=== PATIENT | male | born 1975 | race Caucasian/White ===

== ENCOUNTER 2017-05-28 10:52 | Emergency (ER) | payer BC, OTHER ==
[2017-05-28] MEDS ORDERED: Sodium Chloride 0.9% 10 ML Syringe FLUSH PRN ×2 (11:26→12:52)
[2017-05-28] MEDS ORDERED: Albuterol/Ipratropium 3.0-0.5 MG/3 ML Neb Soln NEB ONE (11:30)
--- NOTE | 2017-05-28 12:23 | EDM.PDOC ---
ED HPI GENERAL MEDICAL PROBLEM - General Chief Complaint: Cardiovascular Problem Stated Complaint: BODY SWELLING AND SOB Time Seen by Provider: 05/28/17 11:08 Source of Information: Reports: Patient, Family History Limitations: Reports: No Limitations - History of Present Illness INITIAL COMMENTS - FREE TEXT/NARRATIVE: The patient presents with shortness of breath and distended abdomen. This all started about 1 week ago with a cough that was productive of clear secretions. He had no fever but he does have chills. He now has a distended abdomen. He is still having bowel movements but they are less. He would normally go every day but now it is every other day and not as much. He has no abdominal pain. He just feels bloated. He has some nausea at times but no vomiting. He has no dysuria. He has no chest pain but he is short of breath. He cannot walk but a few steps and gets winded. He also is short of breath sleeping. He says he can tolerate it by laying on his left side. He has no cardiac history. He quit smoking a couple years ago. He has no asthma or emphysema. He has high blood pressure. He has swelling in both legs. Onset: Gradual Duration: Week(s): (1) Location: Reports: Abdomen Quality: Reports: Other (Bloated) Severity: Moderate Improves with: Reports: None Worsens with: Reports: None Associated Symptoms: Reports: Cough, cough w sputum, Fever/Chills, Nausea/ Vomiting, Shortness of Breath. Denies: Chest Pain, Headaches Abdomen Pain Score (Numeric/FACES): 9 - Related Data Allergies Allergy/AdvReac Type Severity Reaction Status Date / Time meperidine [From Demerol] Allergy Anaphylactic Verified 05/28/17 11:14 Shock morphine Allergy Anaphylactic Verified 05/28/17 11:14 Shock Home Meds: Home Meds Hydrochlorothiazide 25 mg PO DAILY 05/28/17 [History] Lisinopril 30 mg PO DAILY 05/28/17 [History] Past Medical History Cardiovascular History: Reports: Hypertension Psychiatric History: Reports: Anxiety Social & Family History - Tobacco Use Smoking Status *Q: Former Smoker Used Tobacco, but Quit: Yes Month Tobacco Last Used: 1 week - Caffeine Use Caffeine Use: Reports: Soda, Tea - Recreational Drug Use Recreational Drug Use: No ED ROS GENERAL - Review of Systems Review Of Systems: See Below Constitutional: Reports: Chills, Malaise, Weakness, Fatigue. Denies: Fever HEENT: Reports: No Symptoms Respiratory: Reports: Shortness of Breath, Wheezing, Cough Cardiovascular: Reports: Edema. Denies: Chest Pain Endocrine: Reports: No Symptoms GI/Abdominal: Reports: No Symptoms, Nausea, Other (Abdominal distension). Denies: Abdominal Pain, Diarrhea, Vomiting : Reports: No Symptoms Musculoskeletal: Reports: No Symptoms ED EXAM, GENERAL - Physical Exam Exam: See Below Exam Limited By: No Limitations General Appearance: Alert, No Apparent Distress Ears: Normal External Exam Nose: Normal Inspection Head: Atraumatic, Normocephalic Neck: Normal Inspection Respiratory/Chest: No Respiratory Distress, Decreased Breath Sounds, Wheezing Cardiovascular: No Murmur, Tachycardia, Other (Bilateral leg edema) GI/Abdominal: Soft, Non-Tender, No Organomegaly, No Mass Back Exam: Normal Inspection Extremities: Other (bilateral leg edema) Neurological: Alert, Oriented, No Motor/Sensory Deficits EKG INTERPRETATION EKG Date: 05/28/17 Time: 12:30 Rhythm: Other (sinus tachycardia) Rate (Beats/Min): 122 [place]: Normal P-Wave: Present QRS: Normal ST-T: Normal QT: Prolonged EKG Interpretation Comments: Q waves in the anterior leads Course - Vital Signs Last Recorded V/S: Last Vital Signs Temp 956 F H 05/28/17 11:06 Pulse 124 H 05/28/17 11:06 Resp 32 H 05/28/17 11:06 BP 139/101 H 05/28/17 11:06 Pulse Ox 97 05/28/17 11:47 - Orders/Labs/Meds Orders: Active Orders 24 hr Category Date Time Status Cardiac Monitoring [RC] . DIRECTED Care 05/28/17 11:26 Active EKG Documentation Completion [RC] STAT Care 05/28/17 11:27 Active Oxygen Therapy [RC] PRN Care 05/28/17 11:26 Active Peripheral IV Care [RC] . DIRECTED Care 05/28/17 11:27 Active RT Aerosol Therapy [RC] ASDIRECTED Care 05/28/17 11:30 Active Chest 1V Frontal [CR] Stat Exams 05/28/17 11:28 Taken Sodium Chloride 0.9% [Normal Saline] 100 ml Med 05/28/17 13:00 Active IV ASDIRECTED Sodium Chloride 0.9% [Saline Flush] Med 05/28/17 11:26 Active 10 ml FLUSH ASDIRECTED PRN Sodium Chloride 0.9% [Saline Flush] Med 05/28/17 12:52 Active 10 ml FLUSH ONETIME PRN Peripheral IV Insertion Adult [OM.PC] Stat Oth 05/28/17 11:26 Ordered Medication Orders Sodium Chloride (Normal Saline) 100 mls @ 65 mls/hr IV ASDIRECTED JASKARAN Last Admin: 05/28/17 13:27 Dose: 65 mls/hr Sodium Chloride (Saline Flush) 10 ml FLUSH ASDIRECTED PRN PRN Reason: Keep Vein Open Last Admin: 05/28/17 11:44 Dose: 10 ml Sodium Chloride (Saline Flush) 10 ml FLUSH ONETIME PRN PRN Reason: IV FLUSH Last Admin: 05/28/17 13:27 Dose: 10 ml Labs: Laboratory Tests 05/28/17 05/28/17 05/28/17 Range/Units 11:40 11:40 11:40 WBC 8.70 (4.23-9.07) K/mm3 RBC 4.68 (4.63-6.08) M/mm3 Hgb 15.2 (13.7-17.5) gm/L Hct 42.9 (40.1-51.0) % MCV 91.7 (79.0-92.2) fl MCH 32.5 H (25.7-32.2) pg MCHC 35.4 (32.2-35.5) g/dl RDW Std Deviation 38.5 (35.1-43.9) fL Plt Count 136 L (163-337) K/mm3 MPV 11.5 (9.4-12.3) fl Neut % (Auto) 67.4 (34.0-67.9) % Lymph % (Auto) 18.4 L (21.8-53.1) % [place] % (Auto) 13.3 H (5.3-12.2) % Eos % (Auto) 0.7 L (0.8-7.0) Baso % (Auto) 0.1 (0.1-1.2) % Neut # (Auto) 5.86 H (1.78-5.38) K/mm3 Lymph # (Auto) 1.60 (1.32-3.57) K/mm3 [place] # (Auto) 1.16 H (0.30-0.82) K/mm3 Eos # (Auto) 0.06 (0.04-0.54) K/mm3 Baso # (Auto) 0.01 (0.01-0.08) K/mm3 PT 15.7 H (8.0-13.0) SECONDS INR 1.41 APTT 29 (22-36) SECONDS Sodium 120 L (136-145) mEq/L Potassium 4.3 (3.5-5.1) mEq/L Chloride 86 L (98-107) mEq/L Carbon Dioxide 21 (21-32) mEq/L Anion Gap 17.3 H (5-15) BUN 8 (7-18) mg/dL Creatinine 0.8 (0.7-1.3) mg/dL Est Cr Clr Drug Dosing 128.11 mL/min Estimated GFR (MDRD) > 60 (>60) mL/min BUN/Creatinine Ratio 10.0 L (14-18) Glucose 113 H (74-106) mg/dL Calcium 8.5 (8.5-10.1) mg/dL Total Bilirubin 1.7 H (0.2-1.0) mg/dL AST 74 H (15-37) U/L ALT 52 (16-63) U/L Alkaline Phosphatase 63 (46-116) U/L Troponin I 0.113 H* (0.00-0.056) ng/mL C-Reactive Protein 5.9 H* (<1.0) mg/dL NT-Pro-B Natriuret Pep (0-125) pg/mL Total Protein 7.1 (6.4-8.2) g/dl Albumin 3.0 L (3.4-5.0) g/dl Globulin 4.1 gm/dL Albumin/Globulin Ratio 0.7 L (1-2) Lipase 518 H (73-393) U/L Urine Color (Yellow) Urine Appearance (Clear) Urine pH (5.0-8.0) Ur Specific [place] (1.005-1.030) Urine Protein (Negative) Urine Glucose (UA) (Negative) Urine Ketones (Negative) Urine Occult Blood (Negative) Urine Nitrite (Negative) Urine Bilirubin (Negative) Urine Urobilinogen (0.2-1.0) Ur Leukocyte Esterase (Negative) Urine RBC (0-5) /hpf Urine WBC (0-5) /hpf Ur Epithelial Cells (0-5) /hpf Urine Bacteria (FEW) /hpf Hyaline Casts (0-5) /lpf Urine Mucus (FEW) /hpf 05/28/17 05/28/17 Range/Units 11:40 12:55 WBC (4.23-9.07) K/mm3 RBC (4.63-6.08) M/mm3 Hgb (13.7-17.5) gm/L Hct (40.1-51.0) % MCV (79.0-92.2) fl MCH (25.7-32.2) pg MCHC (32.2-35.5) g/dl RDW Std Deviation (35.1-43.9) fL Plt Count (163-337) K/mm3 MPV (9.4-12.3) fl Neut % (Auto) (34.0-67.9) % Lymph % (Auto) (21.8-53.1) % [place] % (Auto) (5.3-12.2) % Eos % (Auto) (0.8-7.0) Baso % (Auto) (0.1-1.2) % Neut # (Auto) (1.78-5.38) K/mm3 Lymph # (Auto) (1.32-3.57) K/mm3 [place] # (Auto) (0.30-0.82) K/mm3 Eos # (Auto) (0.04-0.54) K/mm3 Baso # (Auto) (0.01-0.08) K/mm3 PT (8.0-13.0) SECONDS INR APTT (22-36) SECONDS Sodium (136-145) mEq/L Potassium (3.5-5.1) mEq/L Chloride (98-107) mEq/L Carbon Dioxide (21-32) mEq/L Anion Gap (5-15) BUN (7-18) mg/dL Creatinine (0.7-1.3) mg/dL Est Cr Clr Drug Dosing mL/min Estimated GFR (MDRD) (>60) mL/min BUN/Creatinine Ratio (14-18) Glucose (74-106) mg/dL Calcium (8.5-10.1) mg/dL Total Bilirubin (0.2-1.0) mg/dL AST (15-37) U/L ALT (16-63) U/L Alkaline Phosphatase (46-116) U/L Troponin I (0.00-0.056) ng/mL C-Reactive Protein (<1.0) mg/dL NT-Pro-B Natriuret Pep 2868 H (0-125) pg/mL Total Protein (6.4-8.2) g/dl Albumin (3.4-5.0) g/dl Globulin gm/dL Albumin/Globulin Ratio (1-2) Lipase (73-393) U/L Urine Color [place] H (Yellow) Urine Appearance Clear (Clear) Urine pH 6.0 (5.0-8.0) Ur Specific [place] 1.025 (1.005-1.030) Urine Protein 1+ H (Negative) Urine Glucose (UA) Negative (Negative) Urine Ketones Negative (Negative) Urine Occult Blood Negative (Negative) Urine Nitrite Negative (Negative) Urine Bilirubin 1+ H (Negative) Urine Urobilinogen 2.0 H (0.2-1.0) Ur Leukocyte Esterase Negative (Negative) Urine RBC Not seen (0-5) /hpf Urine WBC 0-5 (0-5) /hpf Ur Epithelial Cells 0-5 (0-5) /hpf Urine Bacteria Few (FEW) /hpf Hyaline Casts 0-5 (0-5) /lpf Urine Mucus Moderate H (FEW) /hpf Meds: Medications Generic Name Dose Route Start Last Admin Trade Name Freq PRN Reason Stop Dose Admin Sodium Chloride 100 mls @ 65 mls/hr 05/28/17 13:00 05/28/17 13:27 Normal Saline IV 65 mls/hr ASDIRECTED JASKARAN Administration Sodium Chloride 10 ml 05/28/17 11:26 05/28/17 11:44 Saline Flush FLUSH 10 ml ASDIRECTED PRN Administration Keep Vein Open Sodium Chloride 10 ml 05/28/17 12:52 05/28/17 13:27 Saline Flush FLUSH 10 ml ONETIME PRN Administration IV FLUSH Discontinued Medications Generic Name Dose Route Start Last Admin Trade Name Freq PRN Reason Stop Dose Admin Albuterol/Ipratropium 3 ml 05/28/17 11:30 05/28/17 11:47 Duoneb 3.0-0.5 Mg/3 Ml NEB 05/28/17 11:31 3 ml ONETIME ONE Administration Aspirin 324 mg 05/28/17 12:58 05/28/17 14:07 Aspirin PO 05/28/17 12:59 324 mg ONETIME ONE Administration Diatrizoate Meglum/Diatrizoate Sod 90 ml 05/28/17 12:52 Gastrografin 37% PO 05/28/17 12:53 ONETIME ONE Furosemide 40 mg 05/28/17 13:35 05/28/17 14:07 Lasix IVPUSH 05/28/17 13:36 40 mg NOW ONE Administration Iopamidol 100 ml 05/28/17 12:52 05/28/17 13:27 Isovue-370 (76%) IVPUSH 05/28/17 12:53 100 ml ONETIME ONE Administration Iopamidol 50 ml 05/28/17 12:52 05/28/17 13:27 Isovue-370 (76%) IVPUSH 05/28/17 12:53 50 ml ONETIME ONE Administration - Re-Assessments/Exams Free Text/Narrative Re-Assessment/Exam: 05/28/17 12:28 I ordered an IV saline lock, EKG, CXR, labs, UA, CT of his chest, abdomen and pelvis and an. 05/28/17 14:29 His EKG shows a sinus tachycardia with some Q waves in the anterior leads. His CXR shows cardiomegaly. His CBC is negative. His Na is low at 120. His total bili is elevated at 1.7. His AST is elevated at 74. His troponin is elevated at 0.113. I gave him some aspirin. His CRP was elevated at 5.9. His BNP was elevated at 2868. His lipase was elevated at 518. His UA shows no UTI. His albumin was a little low at 3. The CT of his abdomen and pelvis shows mild amount of ascities. Diffuse body wall edema. No additional abnormality is appreciated on CT study of the abdomen and pelvis. The CT angio of his chest shows cardiomegaly with small to moderate size right-sided pleural effusion and very minimal left-sided pleural effusion. Mild diffuse body wall edema is noted. No findings of pulmonary embolism. I ordered lasix 40mg IV. It appears he had a nonSTEMI and no he is having CHF. I feel he needs to go down to [place]. I called [facility] and talked with Dr Maloney and he accepted the patient. Departure - Departure Time of Disposition: 14:40 Disposition: DC/Tfer to [facility] Reason for Transfer *Q: Other Condition: Serious Clinical Impression: Non-STEMI (non-ST elevated myocardial infarction), Hyponatremia Pancreatitis Qualifiers: Chronicity: acute Pancreatitis type: other Acute pancreatitis complication: no infection or necrosis Qualified Code(s): K85.80 - Other acute pancreatitis without necrosis or infection CHF (congestive heart failure) Qualifiers: Heart failure type: unspecified Heart failure chronicity: acute Qualified Code( s): I50.9 - Heart failure, unspecified Forms: ED Department Discharge - My Orders Last 24 Hours: My Active Orders 05/28/17 11:26 Cardiac Monitoring [RC] . DIRECTED Oxygen Therapy [RC] PRN Sodium Chloride 0.9% [Saline Flush] 10 ml FLUSH ASDIRECTED PRN Peripheral IV Insertion Adult [OM.PC] Stat 05/28/17 11:27 EKG Documentation Completion [RC] STAT Peripheral IV Care [RC] . DIRECTED 05/28/17 11:28 Chest 1V Frontal [CR] Stat 05/28/17 11:30 RT Aerosol Therapy [RC] ASDIRECTED 05/28/17 12:52 Sodium Chloride 0.9% [Saline Flush] 10 ml FLUSH ONETIME PRN 05/28/17 13:00 Sodium Chloride 0.9% [Normal Saline] 100 ml IV ASDIRECTED - Assessment/Plan Last 24 Hours: My Active Orders 05/28/17 11:26 Cardiac Monitoring [RC] . DIRECTED Oxygen Therapy [RC] PRN Sodium Chloride 0.9% [Saline Flush] 10 ml FLUSH ASDIRECTED PRN Peripheral IV Insertion Adult [OM.PC] Stat 05/28/17 11:27 EKG Documentation Completion [RC] STAT Peripheral IV Care [RC] . DIRECTED 05/28/17 11:28 Chest 1V Frontal [CR] Stat 05/28/17 11:30 RT Aerosol Therapy [RC] ASDIRECTED 05/28/17 12:52 Sodium Chloride 0.9% [Saline Flush] 10 ml FLUSH ONETIME PRN 02/18/18 13:00 Sodium Chloride 0.9% [Normal Saline] 100 ml IV ASDIRECTED
[2017-05-28] MEDS ORDERED: Iopamidol 755 Mg/ML 100 ML Bottle IVPUSH ONE (12:52)
[2017-05-28] MEDS ORDERED: Diatrizoate Meglumine/Diatrizoate Sodium 37% 120 ML Bottle PO ONE (12:52)
[2017-05-28] MEDS ORDERED: Iopamidol 755 MG/ML 50 ML Bottle IVPUSH ONE (12:52)
[2017-05-28] MEDS ORDERED: Aspirin 81 MG Tab.Chew PO ONE (12:58)
[2017-05-28] MEDS ORDERED: Sodium Chloride 0.9% 100 ML IV SCH (13:00)
[2017-05-28] MEDS ORDERED: Furosemide 40 MG/4 ML VIAL IVPUSH ONE (13:35)
--- NOTE | 2017-05-28 14:22 | CT ---
CT abdomen and pelvis Technique: Volumetric acquisition was obtained from above the dome of the diaphragm inferiorly through the pubic symphysis. Intravenous and oral contrast was utilized. Delayed images were also obtained through the abdomen and pelvis. Findings: Mild amount of ascites is seen within the abdomen and pelvis. Liver shows no discrete abnormality. Spleen appears within normal limits. Adrenal glands show no nodule. Pancreas is within normal limits. Kidneys show symmetric contrast enhancement without hydronephrosis or mass. Adrenal glands show no nodule. Pancreas is normal. Aorta shows no aneurysm. No retroperitoneal adenopathy or mesenteric abnormalities are seen. No pelvic mass or adenopathy is seen. Appendix is seen which appears to be normal. No bowel dilatation is seen. Body wall edema is noted. Delayed images shows contrast within nondilated ureters and bladder. Bone window settings were reviewed which appear within normal limits for the patient's age. Impression: 1. Mild amount of ascites. Diffuse body wall edema. 2. No additional abnormality is appreciated on CT study of the abdomen and pelvis. Diagnostic code #3
--- NOTE | 2017-05-28 14:22 | CT ---
CT chest Technique: Multiple axial sections were obtained through the chest. Intravenous contrast was utilized. Findings: Small to moderate-sized right sided pleural effusion is seen as well as trace left-sided pleural effusion. Slight compressive atelectasis seen within the right lung base. Minimal linear densities within the left base are seen likely representing slight atelectasis. Lungs otherwise are clear. Heart appears enlarged. Pulmonary arteries are well-opacified. No filling defects are seen to indicate pulmonary embolism. Mild diffuse body wall edema is seen. Mediastinum and hilar regions shows several small lymph nodes which are felt to be incidental. Slight degenerative spurring is noted within the spine. Impression: 1. Cardiomegaly with small to moderate size right-sided pleural effusion and very minimal left-sided pleural effusion. Mild diffuse body wall edema is noted. 2. No findings of pulmonary embolism. Diagnostic code #5
[2017-05-28] MEDS ORDERED: Nitroglycerin/D5W 25 MG/250 ML BOTTLE IV SCH (15:00)
--- NOTE | 2017-05-29 07:06 | CR ---
Chest: Portable view of the chest was obtained. Comparison: No previous chest x-ray. Heart is enlarged. Slight upper lobe pulmonary vascular redistribution is seen. Minimal areas of scattered atelectasis are seen. No alveolar type densities are seen. Bony structures are grossly intact. Impression: 1. Cardiomegaly, echocardiogram recommended if etiology of the enlarged heart is not clinically known. 2. Slight upper lobe pulmonary vascular redistribution with minimal scattered atelectasis. Diagnostic code #3
== END 2017-05-28 15:23 ==
LOC: SUPCPDRO 10:52 → JD.ED 10:52
DX: I21.4 Non-ST elevation (NSTEMI) myocardial infarction (principal); K85.80 Other acute pancreatitis without necrosis or infection; I11.0 Hypertensive heart disease with heart failure; I50.9 Heart failure, unspecified; Z87.891 Personal history of nicotine dependence; Z79.899 Other long term (current) drug therapy; Z88.8 Allergy status to other drugs, medicaments and biological substances; Z88.5 Allergy status to narcotic agent
CPT/HCPCS: 36415; 71045; 71275; 74177; 80053; 81001; 83690; 83880; 84484; 85025; 85610; 85730; 86140; 93005; 94640; 96365; 96375; 99285; A9270; J1940; J7030; J7050; Q9963; Q9967; 93010

== ENCOUNTER 2017-06-10 03:25 | Emergency (ER) | payer BC ==
--- NOTE | 2017-06-10 03:43 | EDM.PDOC ---
ED HPI GENERAL MEDICAL PROBLEM - General Chief Complaint: Cardiovascular Problem Stated Complaint: BLOATED Time Seen by Provider: 06/10/17 03:32 Source of Information: Reports: Patient, Family History Limitations: Reports: No Limitations - History of Present Illness INITIAL COMMENTS - FREE TEXT/NARRATIVE: This is a 41-year-old male. On May 28 he was seen here in the ER and diagnosed with a non-STEMI myocardial infarction, congestive heart failure, ascites, pancreatitis, hyponatremia and cardiomegaly. He was transferred to [facility] in [place] and was seen there by a Dr. Rankin who is a java developer architect. He was told that he had an ejection fraction of 20%. He was released last Monday, 05 June. He has noted over the last couple of days of increasing shortness of breath with ambulation and also increasing shortness of breath when he lies down flat. Originally when he was here he had marked abdominal distention. He is noted in the last couple of days to have increasing abdominal distention. He has gained at least 5 pounds over the last couple of days. He was on fluid restriction in the hospital but he was not placed on fluid restriction at home though he says he was trying to be careful. He is on Lasix 20 mg a day and spironolactone 25 mg a day. He denies any palpitations at home or a feeling of fluttering in his chest or feeling lightheaded. The EKG and monitor suggest atrial flutter at this time. Abdomen Pain Score (Numeric/FACES): 8 - Related Data Allergies Allergy/AdvReac Type Severity Reaction Status Date / Time meperidine [From Demerol] Allergy Anaphylactic Verified 05/28/17 11:14 Shock morphine Allergy Anaphylactic Verified 05/28/17 11:14 Shock Home Meds: Home Meds Aspirin 81 mg PO DAILY 06/10/17 [History] Clopidogrel [Plavix] 75 mg PO DAILY 06/10/17 [History] Folic Acid 1 mg PO DAILY 06/10/17 [History] Lisinopril 2.5 mg PO DAILY 06/10/17 [History] Metoprolol Succinate 50 mg PO DAILY 06/10/17 [History] Spironolactone [Aldactone] 25 mg PO DAILY 06/10/17 [History] Torsemide [Demadex] 2 mg PO DAILY 06/10/17 [History] atorvaSTATin [Lipitor] 10 mg PO DAILY 06/10/17 [History] Past Medical History HEENT History: Reports: Impaired Vision Other HEENT History: wears glasses, neva in [place]) eye. Cardiovascular History: Reports: Hypertension Neurological History: Reports: TIA Psychiatric History: Reports: Anxiety - Past Surgical History Cardiovascular Surgical History: Reports: Other (See Below) Other Cardiovascular Surgeries/Procedures: angioplasty Social & Family History - Tobacco Use Smoking Status *Q: Former Smoker Used Tobacco, but Quit: Yes Month Tobacco Last Used: 05/2017 - Caffeine Use Caffeine Use: Reports: Soda, Tea - Alcohol Use Days Per Week of Alcohol Use: 7 Number of Drinks Per Day: 2 Total Drinks Per Week: 14 - Recreational Drug Use Recreational Drug Use: No ED ROS GENERAL - Review of Systems Review Of Systems: See Below Constitutional: Reports: Malaise, Weakness, Fatigue, Weight Gain. Denies: Fever , Chills HEENT: Reports: No Symptoms Respiratory: Reports: Shortness of Breath. Denies: Wheezing, Cough Cardiovascular: Denies: Chest Pain Endocrine: Reports: Fatigue GI/Abdominal: Reports: Distension : Reports: No Symptoms Musculoskeletal: Reports: Other (No recent peripheral edema) Skin: Reports: No Symptoms Neurological: Reports: No Symptoms Psychiatric: Reports: No Symptoms Hematologic/Lymphatic: Reports: No Symptoms ED EXAM, GENERAL - Physical Exam Exam: See Below Exam Limited By: No Limitations General Appearance: Alert, WD/WN, No Apparent Distress Eye Exam: Bilateral Eye: Normal Inspection Ears: Normal External Exam Nose: Normal Inspection Throat/Mouth: Normal Inspection, Normal Lips, Normal Voice, No Airway Compromise Head: Normocephalic Neck: Supple, Other (No obvious JVD as he's inclined at 30) Respiratory/Chest: Other (He does not appear to be in respiratory distress, I do not really get the feeling of rales or rhonchi in the bases noted) Cardiovascular: Regular Rate, Rhythm, No Murmur, Tachycardia GI/Abdominal: Other (Patient is mildly distended but he is nontender on palpation, I'm not able to feel a splash with percussion) Back Exam: Full Range of Motion Extremities: Normal Range of Motion, Other (He has no lower extremity swelling noted) Neurological: Alert, Oriented Psychiatric: Normal Affect, Normal Mood Skin Exam: Warm, Dry EKG INTERPRETATION EKG Date: 06/10/17 Time: 03:38 EKG Interpretation Comments: Patient is in atrial flutter with a rapid response rate of 144. He has diffuse ischemia suggested inferior laterally but no acute ST elevation noted Course - Vital Signs Last Recorded V/S: Last Vital Signs Temp 96.2 F 06/10/17 03:33 Pulse 149 H 06/10/17 03:55 Resp 25 H 06/10/17 03:33 BP 113/101 H 06/10/17 03:55 Pulse Ox 98 06/10/17 03:33 - Orders/Labs/Meds Orders: Active Orders 24 hr Category Date Time Status EKG 12 Lead [EKG Documentation Completion] [RC] STAT Care 06/10/17 04:31 Active Chest 2V [CR] Stat Exams 06/10/17 03:51 Taken Labs: Laboratory Tests 06/10/17 06/10/17 06/10/17 Range/Units 03:40 03:40 03:40 WBC 7.78 (4.23-9.07) K/mm3 RBC 4.45 L (4.63-6.08) M/mm3 Hgb 14.1 (13.7-17.5) gm/L Hct 41.3 (40.1-51.0) % MCV 92.8 H (79.0-92.2) fl MCH 31.7 (25.7-32.2) pg MCHC 34.1 (32.2-35.5) g/dl RDW Std Deviation 40.7 (35.1-43.9) fL Plt Count 139 L (163-337) K/mm3 MPV 12.1 (9.4-12.3) fl Neut % (Auto) 58.9 (34.0-67.9) % Lymph % (Auto) 27.0 (21.8-53.1) % [place] % (Auto) 11.7 (5.3-12.2) % Eos % (Auto) 1.8 (0.8-7.0) Baso % (Auto) 0.3 (0.1-1.2) % Neut # (Auto) 4.59 (1.78-5.38) K/mm3 Lymph # (Auto) 2.10 (1.32-3.57) K/mm3 [place] # (Auto) 0.91 H (0.30-0.82) K/mm3 Eos # (Auto) 0.14 (0.04-0.54) K/mm3 Baso # (Auto) 0.02 (0.01-0.08) K/mm3 PT (8.0-13.0) SECONDS INR Sodium 128 L (136-145) mEq/L Potassium 4.4 (3.5-5.1) mEq/L Chloride 94 L (98-107) mEq/L Carbon Dioxide 24 (21-32) mEq/L Anion Gap 14.4 (5-15) BUN 14 (7-18) mg/dL Creatinine 0.9 (0.7-1.3) mg/dL Est Cr Clr Drug Dosing 113.88 mL/min Estimated GFR (MDRD) > 60 (>60) mL/min BUN/Creatinine Ratio 15.6 (14-18) Glucose 127 H (74-106) mg/dL Calcium 8.8 (8.5-10.1) mg/dL Total Bilirubin 1.0 (0.2-1.0) mg/dL AST 40 H (15-37) U/L ALT 52 (16-63) U/L Alkaline Phosphatase 61 (46-116) U/L Troponin I 0.104 H* (0.00-0.056) ng/mL C-Reactive Protein 2.8 H* (<1.0) mg/dL NT-Pro-B Natriuret Pep 2853 H (0-125) pg/mL Total Protein 7.5 (6.4-8.2) g/dl Albumin 3.1 L (3.4-5.0) g/dl Globulin 4.4 gm/dL Albumin/Globulin Ratio 0.7 L (1-2) Lipase 469 H (73-393) U/L 06/10/17 Range/Units 03:40 WBC (4.23-9.07) K/mm3 RBC (4.63-6.08) M/mm3 Hgb (13.7-17.5) gm/L Hct (40.1-51.0) % MCV (79.0-92.2) fl MCH (25.7-32.2) pg MCHC (32.2-35.5) g/dl RDW Std Deviation (35.1-43.9) fL Plt Count (163-337) K/mm3 MPV (9.4-12.3) fl Neut % (Auto) (34.0-67.9) % Lymph % (Auto) (21.8-53.1) % [place] % (Auto) (5.3-12.2) % Eos % (Auto) (0.8-7.0) Baso % (Auto) (0.1-1.2) % Neut # (Auto) (1.78-5.38) K/mm3 Lymph # (Auto) (1.32-3.57) K/mm3 [place] # (Auto) (0.30-0.82) K/mm3 Eos # (Auto) (0.04-0.54) K/mm3 Baso # (Auto) (0.01-0.08) K/mm3 PT 13.4 H (8.0-13.0) SECONDS INR 1.25 Sodium (136-145) mEq/L Potassium (3.5-5.1) mEq/L Chloride (98-107) mEq/L Carbon Dioxide (21-32) mEq/L Anion Gap (5-15) BUN (7-18) mg/dL Creatinine (0.7-1.3) mg/dL Est Cr Clr Drug Dosing mL/min Estimated GFR (MDRD) (>60) mL/min BUN/Creatinine Ratio (14-18) Glucose (74-106) mg/dL Calcium (8.5-10.1) mg/dL Total Bilirubin (0.2-1.0) mg/dL AST (15-37) U/L ALT (16-63) U/L Alkaline Phosphatase (46-116) U/L Troponin I (0.00-0.056) ng/mL C-Reactive Protein (<1.0) mg/dL NT-Pro-B Natriuret Pep (0-125) pg/mL Total Protein (6.4-8.2) g/dl Albumin (3.4-5.0) g/dl Globulin gm/dL Albumin/Globulin Ratio (1-2) Lipase (73-393) U/L Meds: Medications Discontinued Medications Generic Name Dose Route Start Last Admin Trade Name Freq PRN Reason Stop Dose Admin Metoprolol Tartrate 5 mg 06/10/17 03:51 06/10/17 03:55 Lopressor IVPUSH 06/10/17 03:52 5 mg ONETIME ONE Administration - Radiology Interpretation Free Text/Narrative:: Chest x-ray shows cardiomegaly as well as some very mild congestive failure - Re-Assessments/Exams Free Text/Narrative Re-Assessment/Exam: 06/10/17 04:53 The patient again is noted to have an elevated troponin of 0.104, a lipase of 469 a BNP of 2853 a sodium of 128. He is a new onset atrial flutter and again due to his cardiomegaly easing congestive heart failure with some mild ascites and pancreatitis and a non-STEMI myocardial infarction again. I called [facility] and spoke with Dr. Beyer in the ER and he agrees to accept the patient in transport to the ER and they will assess him and talked to the java developer architect as far as evaluation and treatment. 06/10/17 04:54 I spoke the patient and his significant other regarding the findings. Because of his new onset atrial flutter and his blood pressures running in the 90s to 110 systolic I do not feel comfortable with letting the significant other take him to [place] and we will transport him by ambulance to [place]. They both understand this and agree. 06/10/17 04:57 Dr. Beyer agrees to accept the patient in transport to [facility] to be seen in the ER. Departure - Departure Time of Disposition: 04:55 Disposition: DC/Tfer to Acute Hospital 02 Reason for Transfer *Q: Other (Need of Clinical Quality Assurance Associate care) Condition: Poor Clinical Impression: New onset atrial flutter, Atrial flutter with rapid ventricular response, Non- STEMI (non-ST elevated myocardial infarction), Hyponatremia, Elevated lipase, Distended abdomen Congestive heart failure Qualifiers: Heart failure type: unspecified Heart failure chronicity: acute Qualified Code( s): I50.9 - Heart failure, unspecified Hypotension Qualifiers: Hypotension type: other hypotension type Qualified Code(s): I95.89 - Other hypotension Forms: ED Department Discharge ED Communication - ED Communication Date/Time Date: 06/10/17 Time Called: 04:57 - Discussed Case With (1) Discussed Case With (1): Other (Excepting physician) Person/s Notified (1): Dr. Beyer (He agrees to accept the patient in transport to [facility]) - My Orders Last 24 Hours: My Active Orders 06/10/17 03:51 Chest 2V [CR] Stat 06/10/17 04:31 EKG 12 Lead [EKG Documentation Completion] [RC] STAT - Assessment/Plan Last 24 Hours: My Active Orders 06/10/17 03:51 Chest 2V [CR] Stat 06/10/17 04:31 EKG 12 Lead [EKG Documentation Completion] [RC] STAT
[2017-06-10] MEDS ORDERED: Metoprolol Tartrate 5 MG/5 ML SDV IVPUSH ONE (03:51)
--- NOTE | 2017-06-10 14:23 | CR ---
Chest: Two views of the chest were obtained. Comparison: Prior chest x-ray of 05/28/17. Heart size at the upper limits of normal. Lungs are clear. Bony structures are within normal limits for the patient's age. Impression: 1. Heart size at the upper limits of normal. 2. Nothing acute is appreciated on two-view chest x-ray. Diagnostic code #2
== END 2017-06-10 05:55 ==
LOC: JD.ED 03:25
DX: I21.4 Non-ST elevation (NSTEMI) myocardial infarction (principal); I11.0 Hypertensive heart disease with heart failure; I50.9 Heart failure, unspecified; I48.92 Unspecified atrial flutter; I95.89 Other hypotension; E87.1 Hypo-osmolality and hyponatremia; H54.7 Unspecified visual loss; F41.9 Anxiety disorder, unspecified; Z79.82 Long term (current) use of aspirin; Z79.899 Other long term (current) drug therapy; Z87.891 Personal history of nicotine dependence; Z88.5 Allergy status to narcotic agent
CPT/HCPCS: 36415; 71046; 71046-26; 80053; 83690; 83880; 84484; 85025; 85610; 86140; 93005; 93010; 96374; 99285-25; J3490

== ENCOUNTER 2018-08-22 09:20 | Emergency (ER) | payer BC ==
--- NOTE | 2018-08-22 10:16 | EDM.PDOC ---
ED HPI GENERAL MEDICAL PROBLEM - General Chief Complaint: Lower Extremity Injury/Pain Stated Complaint: R ANKLE PAIN Time Seen by Provider: 08/22/18 09:31 Source of Information: Reports: Patient, Family (Mother), RN Notes Reviewed History Limitations: Reports: No Limitations - History of Present Illness INITIAL COMMENTS - FREE TEXT/NARRATIVE: The patient states that he sprained his ankle about 1.5 months ago. He states that over time, it resolved back to normal. The patient states that he then developed swelling and throbbing pain to his right ankle over the past 2 nights, such that he was unable to walk on it last night. He notes that he may have twisted it while trying to sleep last night, causing a "popping" sound, however, that would not explain the pain and swelling 2 nights ago. The patient states that he took Tylenol and John wrapped his ankle around 03:00 this morning, noting that his pain had improved this morning. The patient has no history of gout or podagra. No recent fever, weight loss, or malaise. No recent rash, adenopathy, oral or nasal ulcers, or complaint of dry eyes or mouth. No gastrointestinal or genitourinary complaints. The patient denies having paresthesia to the foot. The patient's PCP is Marilee Jaime. He sees Navin Woody NP, at the [facility]. His EP Laboratory Animal Facility Supervisor is Dr. Josue Farmer. Ankle Pain Score (Numeric/FACES): 5 - Related Data Allergies Allergy/AdvReac Type Severity Reaction Status Date / Time meperidine [From Demerol] Allergy Anaphylactic Verified 08/22/18 09:32 Shock morphine Allergy Anaphylactic Verified 08/22/18 09:32 Shock Home Meds: Home Meds Aspirin 81 mg PO DAILY 06/10/17 [History] Folic Acid 1 mg PO DAILY 06/10/17 [History] Metoprolol Succinate 25 mg PO DAILY 06/10/17 [History] Spironolactone [Aldactone] 25 mg PO DAILY 06/10/17 [History] Torsemide [Demadex] 20 mg PO TID 06/10/17 [History] Amiodarone [Cordarone] 200 mg PO DAILY 07/06/17 [History] Apixaban [Eliquis] 5 mg PO BID 07/06/17 [History] Thiamine [Vitamin B-1] 50 mg PO DAILY 07/06/17 [History] predniSONE [Prednisone] 1 tab PO DAILY #4 tablet 08/22/18 [Rx] Past Medical History HEENT History: Reports: Impaired Vision Other HEENT History: wears glasses, blind in Lt eye. Cardiovascular History: Reports: Afib (A-flutter - paroxysmal), Heart Failure, Hypertension Psychiatric History: Reports: Anxiety Endocrine/Metabolic History: Reports: Diabetes, Type II, Hypothyroidism - Past Surgical History HEENT Surgical History: Reports: Oral Surgery (wisdom teeth extraction) Cardiovascular Surgical History: Reports: Cardiac Ablation (for A-fib/flutter, May 2018), Other (See Below) (Coronary angiogram 05/28/2017 - clean. Implantable loop recorder.) Musculoskeletal Surgical History: Reports: Other (See Below) (Left knee ligament repair - open. Left 4th finger tendon repair.) Social & Family History - Tobacco Use Smoking Status *Q: Current Every Day Smoker Years of Tobacco use: 28 Packs/Tins Daily: 0.2 Month/Year Tobacco Last Used: Down from 1 ppd - Caffeine Use Caffeine Use: Reports: Soda, Tea - Alcohol Use Alcohol Use History: Yes Alcohol Use Frequency: Daily - Recreational Drug Use Recreational Drug Use: No - Living Situation & Occupation Living situation: Reports: , Alone Occupation: Employed (Sanitation) Review of Systems - Review of Systems Review Of Systems: ROS reveals no pertinent complaints other than HPI. ED EXAM, GENERAL - Physical Exam Exam: See Below Exam Limited By: No Limitations General Appearance: Alert, WD/WN, No Apparent Distress Extremities: Other (The patient's right ankle was found John wrapped. The John wrap was removed, revealing a moderately swollen ankle, extending to the dorsal aspect of the foot. No other visible abnormalities, such as erythema, ecchymosis , or abrasion. There is normal sensation to the entire right foot. There is exquisite tenderness, principally to the lateral malleolus, with significant tenderness to the medial malleolus and anterior syndesmosis, but no tenderness to the posterior syndesmosis. Pain is NOT induced in the ankle with either active or passive dorsiflexion or plantar flexion, however, pain is induced to the lateral and medial malleoli with passive inversion and eversion of the foot , respectively. Excellent posterior tibialis and dorsalis pedis pulses on the left. Similarly excellent posterior tibialis pulse on the right, however, only a faint dorsalis pedis pulse is palpated on the right - this may be due to the swelling/edema.) Course - Vital Signs Last Recorded V/S: Last Vital Signs Temp 35.9 C 08/22/18 09:29 Pulse 97 08/22/18 09:29 Resp 16 08/22/18 09:29 BP 147/100 H 08/22/18 09:29 Pulse Ox 99 08/22/18 09:29 - Orders/Labs/Meds Labs: Laboratory Tests 08/22/18 08/22/18 Range/Units 10:25 10:25 WBC 7.35 (4.23-9.07) K/mm3 RBC 4.20 L (4.63-6.08) M/mm3 Hgb 13.5 L (13.7-17.5) gm/L Hct 39.1 L (40.1-51.0) % MCV 93.1 H (79.0-92.2) fl MCH 32.1 (25.7-32.2) pg MCHC 34.5 (32.2-35.5) g/dl RDW Std Deviation 40.4 (35.1-43.9) fL Plt Count 158 L (163-337) K/mm3 MPV 10.0 (9.4-12.3) fl Neutrophils % (Manual) 73 H (40-60) % Band Neutrophils % 0 (0-10) % Lymphocytes % (Manual) 21 (20-40) % Atypical Lymphs % 0 % Monocytes % (Manual) 5 (2-10) % Eosinophils % (Manual) 1 (0.8-7.0) % Basophils % (Manual) 0 L (0.2-1.2) Platelet Estimate Adequate Polychromasia 1+ slight RBC Morph Comment Abnormal C-Reactive Protein 8.1 H* (<1.0) mg/dL Meds: Medications Discontinued Medications Generic Name Dose Route Start Last Admin Trade Name Freq PRN Reason Stop Dose Admin Prednisone 40 mg 08/22/18 13:04 08/22/18 13:40 Prednisone PO 08/22/18 13:05 40 mg ONETIME STA Administration - Re-Assessments/Exams Free Text/Narrative Re-Assessment/Exam: 08/22/18 10:05 The patient has pain and swelling of his right ankle. He reports that his ankle "popped" last night, precipitating pain, but there was no apparent injury 2 nights ago, when he also had pain and swelling. The patient has obvious swelling to his ankle, particularly over the lateral malleolus, and he is exquisitely tender to palpation of both his lateral malleolus, medial malleolus , and anterior syndesmosis, however, he has essentially no pain with PROM, which speaks against an intra-articular process, and in favor of an extra- articular process, such as tendinitis. While he has an excellent right posterior tibialis pulse, he has only a faint dorsalis pedis pulse. I suspect, however, that that is due to the swelling/edema of his foot, and not because of arterial insufficiency, given that his right foot is just is warm as his left, and he has no paresthesia. I am not prepared to aspirate his ankle to look for a crystal arthropathy, however, I have ordered a CBC and CRP to see if there is a suggestion of an infection or inflammatory process. I have also ordered x-rays of the right ankle , to exclude an obvious bony injury, as well as an arterial Doppler to exclude distal arterial occlusion. 08/22/18 10:47 4 view radiographs of the right ankle is read by Dr. Sanchez as: 1. Soft tissue swelling. 2. Calcaneal spurs. 3. No additional abnormality is identified. 08/22/18 12:43 Doppler ultrasound of the right lower extremity is read by Dr. Sanchez as: 1. Satisfactory velocity measurements throughout the major arteries within the right lower extremity. Cannot exclude small vessel arterial disease. 08/22/18 12:[address] Saqib Hager, Orthopedic Surgeon at the [facility] in [place]. He suspects that the patient has a ligamentous injury to his right ankle. He recommends a NSAID or steroids, ice, elevation, and follow- up in a week if it has not improved. Reviewing the patient's list of medications, there are 3 category D contraindications to the patient taking ibuprofen, including with aspirin, Eliquis, and torsemide. There are only 2 category C contraindications to the patient taking prednisone, including increased risk of GI bleed with aspirin, and an increased risk of hypokalemia with torsemide. I will therefore prescribe a 5-day course of oral prednisone - 40 mg today, then 20 mg daily for the next 4 days. I will have him follow-up with Dr. Hager in [place] next week if he is still having pain. 08/22/18 13:13 The above plan was discussed with the patient and his mother. He is in agreement. Departure - Departure Time of Disposition: 13:13 Disposition: Home, Self-Care 01 Condition: Good Clinical Impression: Disorder of ligament, right ankle - Discharge Information *PRESCRIPTION DRUG MONITORING PROGRAM REVIEWED*: Not Applicable *COPY OF PRESCRIPTION DRUG MONITORING REPORT IN PATIENT ASHLEY: Not Applicable Prescriptions: predniSONE [Prednisone] 1 tab PO DAILY #4 tablet Referrals: Marilee Jaime NP [Primary Care Provider] - Saqib Hager MD [Ordering Only Provider] - Forms: ED Department Discharge, ED Return to Work/School Form Additional Instructions: You were seen in the emergency room for 2 days of right ankle pain and swelling. Workup in the ER included blood work, an x-ray of your right ankle, and an arterial Doppler of your right lower extremity. Your workup was unremarkable, with the exception of your CRP (a measure of inflammation) being elevated at 8.1. The cause of this is not known. Your case was discussed with the Orthopedic Surgeon Dr. Saqib Hager. He feels, based on your history, physical exam, and ER tests, that you have suffered a ligamentous injury to your ankle. You have been started on the steroid prednisone. A prescription for prednisone has been sent to the [facility], located at [address] [place] [address]. Take one tablet of prednisone, with food, every day, starting tomorrow, , 08/23/2018, as prescribed. Consider not taking your baby aspirin while you are on prednisone. You may continue the rest of your usual medicines. Ice and elevate your right ankle as much as possible over the next several days. A note for work has been provided to you. If your ankle is not all better by next 08/29/2018, please follow-up with Dr. Hager in [place]. If any other problems, please do not hesitate to return to the ER.
--- NOTE | 2018-08-22 10:46 | CR ---
Right ankle: Four views of the right ankle were obtained. Comparison: No prior ankle exam. Soft tissue swelling is identified. Ankle mortise is symmetric. Plantar spur is noted. Small spur is noted at the attachment of the Achilles tendon to the calcaneus. No acute fracture or dislocation is seen. Impression: 1. Soft tissue swelling. 2. Calcaneal spurs. 3. No additional abnormality is identified. Diagnostic code #2
--- NOTE | 2018-08-22 12:29 | US ---
Right lower extremity arterial ultrasound: Doppler and color flow imaging was obtained of the right common femoral arteries on both sides as well as superficial femoral, popliteal, posterior tibial, peroneal and dorsalis pedis arteries on the right side. Findings: Velocity measurements appear within normal limits throughout the above-described arteries. Nothing is seen by ultrasound exam to indicate a hemodynamic stenosis or occlusion. Impression: 1. Satisfactory velocity measurements throughout the major arteries within the right lower extremity. Cannot exclude small vessel arterial disease. Diagnostic code #1
[2018-08-22] MEDS ORDERED: predniSONE 20 MG Tab PO STA (13:04)
== END 2018-08-22 13:40 | disposition home or self-care (01) ==
LOC: JD.ED 09:20
DX: M24.271 Disorder of ligament, right ankle (principal); I11.0 Hypertensive heart disease with heart failure; I50.9 Heart failure, unspecified; F41.9 Anxiety disorder, unspecified; F17.210 Nicotine dependence, cigarettes, uncomplicated; I48.91 Unspecified atrial fibrillation; E11.9 Type 2 diabetes mellitus without complications; X50.1XXA Overexertion from prolonged static or awkward postures, initial encounter; Z88.8 Allergy status to other drugs, medicaments and biological substances; Z79.82 Long term (current) use of aspirin; Z79.899 Other long term (current) drug therapy; Z79.01 Long term (current) use of anticoagulants
CPT/HCPCS: 36415; 73610; 85007; 85027; 86140; 93925; 99284; A9270

== ENCOUNTER 2022-02-14 22:59 | Emergency (ER) | payer BC ==
[2022-02-15] MEDS ORDERED: Ondansetron 4 MG/2 ML SDV IVPUSH ONE (00:35)
[2022-02-15] MEDS ORDERED: Sodium Chloride 0.9% 10 ML Syringe FLUSH PRN (00:35)
[2022-02-15 01:24] LABS: ESTIMATED GFR 43 mL/min (>60)
== END 2022-02-15 03:10 | disposition home or self-care (01) ==
LOC: JD.ED 22:59
DX: K85.80 Other acute pancreatitis without necrosis or infection (principal); D64.89 Other specified anemias; I11.0 Hypertensive heart disease with heart failure; I50.9 Heart failure, unspecified; E11.9 Type 2 diabetes mellitus without complications; E03.9 Hypothyroidism, unspecified; I48.91 Unspecified atrial fibrillation; F17.210 Nicotine dependence, cigarettes, uncomplicated; Z88.5 Allergy status to narcotic agent; Z88.8 Allergy status to other drugs, medicaments and biological substances; Z79.82 Long term (current) use of aspirin; Z79.01 Long term (current) use of anticoagulants; Z86.73 Personal history of transient ischemic attack (TIA), and cerebral infarction without residual deficits; Z79.899 Other long term (current) drug therapy
CPT/HCPCS: 36415; 74176; 80053; 81001; 83690; 85025; 86140; 96374; 99284; J2405; J3490

== ENCOUNTER 2022-03-14 15:48 | Inpatient (IN) | payer BC ==
[2022-03-14] MEDS ORDERED: Sodium Chloride 0.9% 10 ML Syringe FLUSH PRN (16:11)
[2022-03-14] MEDS ORDERED: Sodium Chloride 0.9% 1,000 ML IV ONE (16:26)
[2022-03-14] MEDS ORDERED: Sodium Chloride 0.9% 250 ML ONE (17:36)
[2022-03-14] MEDS ORDERED: Sodium Chloride 0.9% 250 ML IV SCH (17:45)
[2022-03-14] MEDS ORDERED: Acetaminophen 325 MG Tab PO PRN (19:42)
[2022-03-14] MEDS ORDERED: Ondansetron 4 MG/2 ML SDV IV PRN (19:42)
[2022-03-14] MEDS ORDERED: LORazepam 2 MG/ML SDV IV SCH (19:45)
[2022-03-14] MEDS ORDERED: Sodium Chloride 0.9% 1,000 ML IV SCH (19:45)
[2022-03-14] MEDS: Metoprolol Succinate 50 MG Tab.ER PO SCH (22:34)
[2022-03-15] MEDS ORDERED: Thiamine 100 MG in Sodium Chloride 0.9% 50 ML IV SCH (09:00)
[2022-03-15] MEDS: Thiamine 200 MG/2 ML MDV IV SCH (09:16)
[2022-03-15] MEDS: Pantoprazole 40 MG Vial IVPUSH SCH (09:16)
[2022-03-15] MEDS: Lactulose Soln 10 GM/15 ML 30 ML UD Cup PO SCH ×2 (09:16→20:32)
[2022-03-15] MEDS: Sodium Chloride 0.9% 1,000 ML IV SCH (12:05)
[2022-03-15] MEDS: Metoprolol Succinate 50 MG Tab.ER PO SCH (20:30)
[2022-03-16] MEDS: Sodium Chloride 0.9% 1,000 ML IV SCH (07:15)
[2022-03-16] MEDS ORDERED: Magnesium Sulfate/Water 2 GM in Premix Bag 1 BAG IV ONE (08:03)
[2022-03-16] MEDS: Thiamine 200 MG/2 ML MDV IV SCH (08:59)
[2022-03-16] MEDS: Lactulose Soln 10 GM/15 ML 30 ML UD Cup PO SCH (08:59)
[2022-03-16] MEDS ORDERED: Apixaban 5 MG Tab PO SCH (09:00)
[2022-03-16] MEDS: Pantoprazole 40 MG Vial IVPUSH SCH (09:05)
== END 2022-03-16 15:20 | disposition home or self-care (01) | DRG 469 ==
LOC: JD.ED 15:48 → JD.MS 18:06
PROVIDERS: ADMIT Internal Medicine; ATTEND Internal Medicine
PROC: 30233N1 Transfusion of Nonautologous Red Blood Cells into Peripheral Vein, Percutaneous Approach (ICD-10-PCS; principal; 2022-03-14)
PROC: 3E02340 Introduction of Influenza Vaccine into Muscle, Percutaneous Approach (ICD-10-PCS; 2022-03-16)
DX: N17.9 Acute kidney failure, unspecified (principal); D63.1 Anemia in chronic kidney disease; N18.9 Chronic kidney disease, unspecified; K70.30 Alcoholic cirrhosis of liver without ascites; I48.92 Unspecified atrial flutter; E11.22 Type 2 diabetes mellitus with diabetic chronic kidney disease; N18.32 Chronic kidney disease, stage 3b; R74.8 Abnormal levels of other serum enzymes; I95.89 Other hypotension; E87.1 Hypo-osmolality and hyponatremia; H54.7 Unspecified visual loss; I13.0 Hypertensive heart and chronic kidney disease with heart failure and stage 1 through stage 4 chronic kidney disease, or unspecified chronic kidney disease; F41.9 Anxiety disorder, unspecified; E03.9 Hypothyroidism, unspecified; Z23 Encounter for immunization; E66.9 Obesity, unspecified; F17.210 Nicotine dependence, cigarettes, uncomplicated; I50.30 Unspecified diastolic (congestive) heart failure; E86.1 Hypovolemia; D69.6 Thrombocytopenia, unspecified; Z79.01 Long term (current) use of anticoagulants; Z79.899 Other long term (current) drug therapy; Z88.5 Allergy status to narcotic agent; Z79.82 Long term (current) use of aspirin; Z79.52 Long term (current) use of systemic steroids; Z86.73 Personal history of transient ischemic attack (TIA), and cerebral infarction without residual deficits; Z86.16 Personal history of COVID-19; Z98.890 Other specified postprocedural states; Z68.32 Body mass index [BMI] 32.0-32.9, adult
CPT/HCPCS: 36415; 36430; 74176; 74176-26; 76705; 76705-26; 80053; 82140; 82947; 83735; 85027; 85610; 85730; 86850; 86900; 86901; 86922; 90686; A9270-GY; C9113; G0008; J3411; J3475; J3490; J7030; J7050; P9016

== ENCOUNTER 2022-08-05 18:50 | Inpatient (IN) | payer MEDICAID, OTHER ==
[2022-08-05] MEDS ORDERED: Sodium Chloride 0.9% 1,000 ML IV ONE (20:47)
[2022-08-05] MEDS ORDERED: Ondansetron 4 MG/2 ML SDV IVPUSH ONE (20:47)
[2022-08-05] MEDS ORDERED: Insulin Regular, Human 100 Units/ML 3 ML Vial SUBCUT ONE ×2 (20:47→21:46)
[2022-08-05 20:48] LABS: ESTIMATED GFR 49 mL/min (>60)
[2022-08-05 21:35] LABS: HEMOGLOBIN A1C 7.6 %
[2022-08-05] MEDS ORDERED: Ondansetron 4 MG/2 ML SDV IVPUSH PRN (21:42)
[2022-08-05] MEDS ORDERED: Insulin Glargine,Human Rec. Analog 100 Units/ML 3 ML Pen SUBCUT ONE (21:44)
[2022-08-06] MEDS ORDERED: Insulin Lispro 100 Unit/ML 3 ML KwikPen SUBCUT ONE (00:13)
[2022-08-06] MEDS ORDERED: Insulin Lispro 100 Unit/ML 3 ML KwikPen SUBCUT SCH ×2 (07:30→11:30)
[2022-08-06] MEDS ORDERED: hydrALAZINE 20 MG/ML SDV IVPUSH PRN (10:56)
[2022-08-06] MEDS ORDERED: Ondansetron 4 MG/2 ML SDV IVPUSH PRN (10:56)
[2022-08-06] MEDS ORDERED: Lactulose Soln 10 GM/15 ML 30 ML UD Cup PO SCH (11:00)
[2022-08-06] MEDS ORDERED: Torsemide 20 MG Tab PO PRN (11:00)
[2022-08-06] MEDS ORDERED: Heparin Sodium 5,000 Units/ML Vial SUBCUT SCH (11:15)
[2022-08-06 12:05] LABS: HEMOGLOBIN A1C 7.3 %
[2022-08-06] MEDS: Insulin Lispro 100 Unit/ML 3 ML KwikPen SUBCUT SCH ×5 (12:29→21:19)
[2022-08-06] MEDS: Ferrous Sulfate 324 MG Tab.EC PO SCH ×2 (12:31→21:15)
[2022-08-06] MEDS: Midodrine 5 MG Tab PO SCH ×2 (12:31→16:05)
[2022-08-06] MEDS: Magnesium Oxide 400 MG Tab PO SCH (12:32)
[2022-08-06] MEDS: Folic Acid 1 MG Tab PO SCH (12:32)
[2022-08-06] MEDS: Pantoprazole 40 MG Tab.CR PO SCH ×2 (12:32→21:16)
[2022-08-06] MEDS: cefTRIAXone 1 GM in Sodium Chloride 0.9% 100 ML IV SCH (12:32)
[2022-08-06] MEDS: atorvaSTATin 20 MG Tab PO SCH (12:32)
[2022-08-06] MEDS: Cyanocobalamin (Vitamin B12) 1,000 MCG Tab PO SCH (12:33)
[2022-08-06] MEDS: Lactulose Soln 10 GM/15 ML 30 ML UD Cup PO SCH ×2 (15:53→21:16)
[2022-08-06] MEDS: Metoprolol Succinate 50 MG Tab.ER PO SCH (21:15)
[2022-08-06] MEDS: Thiamine 100 MG Tab PO SCH (21:16)
[2022-08-07] MEDS: predniSONE 20 MG Tab PO SCH (06:05)
[2022-08-07] MEDS: Midodrine 5 MG Tab PO SCH ×3 (06:05→17:11)
[2022-08-07] MEDS: Potassium Chloride 20 MEQ Tab.ER PO SCH (06:05)
[2022-08-07] MEDS: Insulin Lispro 100 Unit/ML 3 ML KwikPen SUBCUT SCH ×7 (08:08→21:22)
[2022-08-07] MEDS: atorvaSTATin 20 MG Tab PO SCH (08:13)
[2022-08-07] MEDS: Cyanocobalamin (Vitamin B12) 1,000 MCG Tab PO SCH (08:13)
[2022-08-07] MEDS: Folic Acid 1 MG Tab PO SCH (08:15)
[2022-08-07] MEDS: Pantoprazole 40 MG Tab.CR PO SCH ×2 (08:15→21:24)
[2022-08-07] MEDS: Ferrous Sulfate 324 MG Tab.EC PO SCH ×2 (08:15→21:24)
[2022-08-07] MEDS: Lactulose Soln 10 GM/15 ML 30 ML UD Cup PO SCH ×3 (08:15→21:23)
[2022-08-07] MEDS: Magnesium Oxide 400 MG Tab PO SCH (08:15)
[2022-08-07] MEDS: Multivitamin Tab PO SCH (08:15)
[2022-08-07] MEDS ORDERED: Insulin Glargine,Human Rec. Analog 100 Units/ML 3 ML Pen SUBCUT SCH ×2 (09:00→10:00)
[2022-08-07] MEDS: cefTRIAXone 1 GM in Sodium Chloride 0.9% 100 ML IV SCH (11:49)
[2022-08-07] MEDS: Metoprolol Succinate 50 MG Tab.ER PO SCH (21:23)
[2022-08-07] MEDS: Thiamine 100 MG Tab PO SCH (21:24)
[2022-08-08] MEDS: Potassium Chloride 20 MEQ Tab.ER PO SCH (06:49)
[2022-08-08] MEDS: predniSONE 20 MG Tab PO SCH (06:49)
[2022-08-08] MEDS: Midodrine 5 MG Tab PO SCH ×3 (06:49→18:01)
[2022-08-08] MEDS: Insulin Lispro 100 Unit/ML 3 ML KwikPen SUBCUT SCH ×7 (06:51→21:05)
[2022-08-08] MEDS: atorvaSTATin 20 MG Tab PO SCH (09:04)
[2022-08-08] MEDS: Lactulose Soln 10 GM/15 ML 30 ML UD Cup PO SCH ×3 (09:04→21:05)
[2022-08-08] MEDS: Cyanocobalamin (Vitamin B12) 1,000 MCG Tab PO SCH (09:05)
[2022-08-08] MEDS: Pantoprazole 40 MG Tab.CR PO SCH ×2 (09:06→21:05)
[2022-08-08] MEDS: Multivitamin Tab PO SCH (09:06)
[2022-08-08] MEDS: Torsemide 20 MG Tab PO SCH (09:07)
[2022-08-08] MEDS: Magnesium Oxide 400 MG Tab PO SCH (09:07)
[2022-08-08] MEDS: Ferrous Sulfate 324 MG Tab.EC PO SCH ×2 (09:08→21:04)
[2022-08-08] MEDS: Folic Acid 1 MG Tab PO SCH (09:09)
[2022-08-08] MEDS: Insulin Glargine,Human Rec. Analog 100 Units/ML 3 ML Pen SUBCUT SCH (09:10)
[2022-08-08] MEDS: cefTRIAXone 1 GM in Sodium Chloride 0.9% 100 ML IV SCH (11:30)
[2022-08-08] MEDS: Thiamine 100 MG Tab PO SCH (21:04)
[2022-08-08] MEDS: Metoprolol Succinate 50 MG Tab.ER PO SCH (21:05)
[2022-08-09] MEDS: Potassium Chloride 20 MEQ Tab.ER PO SCH (06:06)
[2022-08-09] MEDS: predniSONE 20 MG Tab PO SCH (06:06)
[2022-08-09] MEDS: Midodrine 5 MG Tab PO SCH ×2 (06:07→11:51)
[2022-08-09] MEDS: Insulin Lispro 100 Unit/ML 3 ML KwikPen SUBCUT SCH ×4 (08:01→11:43)
[2022-08-09] MEDS: Magnesium Oxide 400 MG Tab PO SCH (08:04)
[2022-08-09] MEDS: Multivitamin Tab PO SCH (08:04)
[2022-08-09] MEDS: Ferrous Sulfate 324 MG Tab.EC PO SCH (08:05)
[2022-08-09] MEDS: Cyanocobalamin (Vitamin B12) 1,000 MCG Tab PO SCH (08:05)
[2022-08-09] MEDS: Folic Acid 1 MG Tab PO SCH (08:05)
[2022-08-09] MEDS: Pantoprazole 40 MG Tab.CR PO SCH (08:05)
[2022-08-09] MEDS: atorvaSTATin 20 MG Tab PO SCH (08:06)
[2022-08-09] MEDS: Torsemide 20 MG Tab PO SCH (08:06)
[2022-08-09] MEDS: Lactulose Soln 10 GM/15 ML 30 ML UD Cup PO SCH (08:07)
[2022-08-09] MEDS: Insulin Glargine,Human Rec. Analog 100 Units/ML 3 ML Pen SUBCUT SCH (08:13)
[2022-08-09] MEDS ORDERED: Insulin Glargine,Human Rec. Analog 100 Units/ML 3 ML Pen SUBCUT ONE (10:45)
[2022-08-09] MEDS: cefTRIAXone 1 GM in Sodium Chloride 0.9% 100 ML IV SCH (12:22)
== END 2022-08-09 14:40 | disposition home or self-care (01) | DRG 637 ==
LOC: JD.ED 18:50 → JD.MS 21:42
PROVIDERS: ADMIT Internal Medicine; ATTEND Internal Medicine
PROC: 0W9G3ZZ Drainage of Peritoneal Cavity, Percutaneous Approach (ICD-10-PCS; principal; 2022-08-09)
DX: E11.00 Type 2 diabetes mellitus with hyperosmolarity without nonketotic hyperglycemic-hyperosmolar coma (NKHHC) (principal); G93.41 Metabolic encephalopathy; F10.288 Alcohol dependence with other alcohol-induced disorder; I13.0 Hypertensive heart and chronic kidney disease with heart failure and stage 1 through stage 4 chronic kidney disease, or unspecified chronic kidney disease; N17.9 Acute kidney failure, unspecified; I48.20 Chronic atrial fibrillation, unspecified; I69.954 Hemiplegia and hemiparesis following unspecified cerebrovascular disease affecting left non-dominant side; R18.8 Other ascites; E11.65 Type 2 diabetes mellitus with hyperglycemia; E66.9 Obesity, unspecified; I48.0 Paroxysmal atrial fibrillation; N18.31 Chronic kidney disease, stage 3a; E11.22 Type 2 diabetes mellitus with diabetic chronic kidney disease; I50.9 Heart failure, unspecified; E87.5 Hyperkalemia; E87.6 Hypokalemia; F41.9 Anxiety disorder, unspecified; D69.6 Thrombocytopenia, unspecified; K74.60 Unspecified cirrhosis of liver; Z86.16 Personal history of COVID-19; Z88.5 Allergy status to narcotic agent; Z79.899 Other long term (current) drug therapy
CPT/HCPCS: 36415; 76705; 76705-26; 80053; 81003; 82009; 82140; 82947; 83036; 83880; 83930; 85025; 85027; 85610; 96374; 97161-GP; 97166-GO; 99284; 99285-25; A9270-GY; J0696; J1815; J1815-GY; J2405; J3490; J7512

== ENCOUNTER 2022-08-17 14:56 | Inpatient (IN) | payer BC, MEDICAID, OTHER ==
[2022-08-17] MEDS ORDERED: LORazepam 2 MG/ML SDV ONE (15:04)
[2022-08-17] MEDS ORDERED: Sodium Chloride 0.9% 10 ML Syringe FLUSH PRN (15:13)
[2022-08-17 16:42] LABS: HEMATOCRIT 28.7 % (40.1-51.0); HEMOGLOBIN 9.2 gm/dl (13.7-17.5); MEAN CORPUSCULAR HGB CONC 32.1 g/dl (32.2-35.5); MEAN CORPUSCULAR VOLUME 102.9 fl (79.0-92.2); MEAN PLATELET VOLUME 11.2 fl (9.4-12.3); PLATELET COUNT,PLT 92 K/mm3 (163-337); RED BLOOD CELL COUNT 2.79 M/mm3 (4.63-6.08); WHITE BLOOD CELL COUNT,WBC 6.82 K/mm3 (4.23-9.07)
[2022-08-17 16:57] LABS: INR 2.29
[2022-08-17 17:03] LABS: A/G RATIO 0.5 (1-2); ANION GAP 13.4 (5-15); BUN/CREATININE RATIO 10.6 (14-18); C-REACTIVE PROTEIN 2.5 mg/dL (<1.0); CALCIUM 8.4 mg/dL (8.5-10.1); EST CRCL DRUG DOSING (CG) 51.82 mL/min; POTASSIUM,K 3.4 mEq/L (3.5-5.1)
[2022-08-17] MEDS ORDERED: cefTRIAXone 2 GM in Sodium Chloride 0.9% 100 ML IV ONE (17:07)
[2022-08-17 17:09] LABS: LACTIC ACID 3.6 mmol/L (0.4-2.0)
[2022-08-17 17:46] LABS: CREATININE 1.8 mg/dL (0.7-1.3)
[2022-08-17 18:13] LABS: BAND PERCENT MAN 0 % (0-10); BASOPHILS PERCENT MAN 1 (0.2-1.2); EOSINOPHILS PERCENT MAN 1 % (0.8-7.0); LYMPHOCYTES % ATYPICAL MANUAL 0 %; LYMPHOCYTES PERCENT MAN 11 % (20-40); MONOCYTES PERCENT MAN 14 % (2-10)
[2022-08-17 18:15] LABS: ANISOCYTOSIS 1+ SLIGHT; PLATELET COUNT ESTIMATE DECREASED
[2022-08-17 19:09] LABS: APPEARANCE,URINE CLEAR (Clear); BILIRUBIN,URINE 2+ (Negative); COLOR,URINE AMBER (Yellow); GLUCOSE,URINE NEGATIVE (Negative); KETONES,URINE TRACE (Negative); LEUKOCYTE ESTERASE,URINE NEGATIVE (Negative); NITRITE,URINE NEGATIVE (Negative); OCCULT BLOOD,URINE NEGATIVE (Negative); PH,URINE 5.5 (5.0-8.0); PROTEIN,URINE TRACE (Negative)
[2022-08-17 19:59] LABS: BACTERIA,URINE FEW /hpf (FEW); MUCUS,URINE FEW /hpf (FEW); OTHER CRYSTALS,URINE RARE /hpf; RBC,URINE 0-5 /hpf (0-5); SQUAMOUS EPITHELIAL CELLS,UR 0-5 /hpf (0-5); WBC,URINE 0-5 /hpf (0-5)
[2022-08-17] MEDS: Ferrous Sulfate 324 MG Tab.EC PO SCH (21:47)
[2022-08-17] MEDS: Metoprolol Succinate 50 MG Tab.ER PO SCH (21:47)
[2022-08-17] MEDS: Midodrine 5 MG Tab PO SCH (21:47)
[2022-08-17] MEDS: Insulin Glargine,Human Rec. Analog 100 Units/ML 3 ML Pen SUBCUT SCH (21:48)
[2022-08-17] MEDS: Lactulose Soln 10 GM/15 ML 30 ML UD Cup PO SCH (21:48)
[2022-08-17] MEDS: Pantoprazole 40 MG Tab.CR PO SCH (21:54)
[2022-08-18 06:08] LABS: BASOPHILS ABSOLUTE AUTO 0.08 K/mm3 (0.01-0.08); BASOPHILS PERCENT AUTO 1.1 % (0.1-1.2); EOSINOPHILS PERCENT AUTO 2.8 (0.8-7.0); HEMATOCRIT 24.7 % (40.1-51.0); HEMOGLOBIN 7.9 gm/dl (13.7-17.5); IMMATURE GRAN ABSOLUTE AUTO 0.01 K/mm3 (0.00-0.10); IMMATURE GRAN PERCENT AUTO 0.1 % (<=1.0); LYMPHOCYTES ABSOLUTE AUTO 2.16 K/mm3 (1.32-3.57); LYMPHOCYTES PERCENT AUTO 30.6 % (21.8-53.1); MEAN CORPUSCULAR HEMOGLOBIN 33.1 pg (25.7-32.2); MEAN CORPUSCULAR VOLUME 103.3 fl (79.0-92.2); MEAN PLATELET VOLUME 11.3 fl (9.4-12.3); MONOCYTES ABSOLUTE AUTO 1.63 K/mm3 (0.30-0.82); MONOCYTES PERCENT AUTO 23.1 % (5.3-12.2); NEUTROPHILS ABSOLUTE AUTO 2.98 K/mm3 (1.78-5.38); NEUTROPHILS PERCENT AUTO 42.3 % (34.0-67.9); PLATELET COUNT,PLT 90 K/mm3 (163-337); RED BLOOD CELL COUNT 2.39 M/mm3 (4.63-6.08); WHITE BLOOD CELL COUNT,WBC 7.06 K/mm3 (4.23-9.07)
[2022-08-18 06:21] LABS: INR 2.31; PROTHROMBIN TIME 23.2 SECONDS (9.7-12.0)
[2022-08-18] MEDS: Torsemide 20 MG Tab PO PRN (06:30)
[2022-08-18] MEDS: Midodrine 5 MG Tab PO SCH ×3 (06:31→17:11)
[2022-08-18] MEDS: Potassium Chloride 20 MEQ Tab.ER PO SCH (06:31)
[2022-08-18] MEDS: Pantoprazole 40 MG Tab.CR PO SCH ×2 (06:31→17:11)
[2022-08-18 06:51] LABS: A/G RATIO 0.5 (1-2); ALBUMIN 1.8 g/dl (3.4-5.0); ANION GAP 9.4 (5-15); BILIRUBIN TOTAL 10.6 mg/dL (0.2-1.0); BUN/CREATININE RATIO 11.3 (14-18); CALCIUM 8.3 mg/dL (8.5-10.1); EST CRCL DRUG DOSING (CG) 62.19 mL/min; MAGNESIUM 1.9 mg/dL (1.8-2.4)
[2022-08-18 06:52] LABS: POTASSIUM,K 3.4 mEq/L (3.5-5.1)
[2022-08-18 06:53] LABS: CREATININE 1.5 mg/dL (0.7-1.3); PROTEIN TOTAL,TP 5.4 g/dl (6.4-8.2)
[2022-08-18] MEDS ORDERED: Insulin Lispro 100 Unit/ML 3 ML KwikPen SUBCUT SCH (07:00)
[2022-08-18 07:58] LABS: SLIDE REVIEW ABNORMAL SMEAR
[2022-08-18] MEDS ORDERED: Insulin Glargine,Human Rec. Analog 100 Units/ML 3 ML Pen SUBCUT SCH (09:00)
[2022-08-18] MEDS: Vitamin B Complex With Vitamin C Cap PO SCH (09:13)
[2022-08-18] MEDS: Cyanocobalamin (Vitamin B12) 1,000 MCG Tab PO SCH (09:13)
[2022-08-18] MEDS: Folic Acid 1 MG Tab PO SCH (09:13)
[2022-08-18] MEDS: Magnesium Oxide 400 MG Tab PO SCH (09:14)
[2022-08-18] MEDS: Thiamine 100 MG Tab PO SCH (09:14)
[2022-08-18] MEDS: atorvaSTATin 20 MG Tab PO SCH (09:14)
[2022-08-18] MEDS: Lactulose Soln 10 GM/15 ML 30 ML UD Cup PO SCH ×3 (09:15→20:33)
[2022-08-18] MEDS: Ferrous Sulfate 324 MG Tab.EC PO SCH ×2 (09:15→20:33)
[2022-08-18] MEDS: Insulin Lispro 100 Unit/ML 3 ML KwikPen SUBCUT SCH ×2 (11:50→17:16)
[2022-08-18] MEDS ORDERED: Lidocaine 1% 10 ML MDV INJECT STA (12:03)
[2022-08-18 13:37] LABS: APPEARANCE,BODY FLUID CLOUDY; COLOR,BODY FLUID YELLOW; SITE,BODY FLUID Peritoneal; VOLUME BODY FLUID 57 ML
[2022-08-18 13:52] LABS: WBC BODY FLUID 0.18 k/mm*3 (0.20-0.60)
[2022-08-18] MEDS: cefTRIAXone 2 GM in Sodium Chloride 0.9% 100 ML IV SCH (17:12)
[2022-08-18] MEDS: Metoprolol Succinate 50 MG Tab.ER PO SCH (20:33)
[2022-08-18] MEDS: Insulin Glargine,Human Rec. Analog 100 Units/ML 3 ML Pen SUBCUT SCH (20:33)
[2022-08-19] MEDS: Torsemide 20 MG Tab PO PRN (06:16)
[2022-08-19] MEDS: Pantoprazole 40 MG Tab.CR PO SCH ×2 (06:16→16:33)
[2022-08-19] MEDS: Potassium Chloride 20 MEQ Tab.ER PO SCH (06:16)
[2022-08-19] MEDS: Midodrine 5 MG Tab PO SCH ×3 (06:16→17:54)
[2022-08-19] MEDS: Insulin Lispro 100 Unit/ML 3 ML KwikPen SUBCUT SCH ×3 (06:52→17:57)
[2022-08-19] MEDS: atorvaSTATin 20 MG Tab PO SCH (08:38)
[2022-08-19] MEDS: Ferrous Sulfate 324 MG Tab.EC PO SCH ×2 (08:39→21:35)
[2022-08-19] MEDS: Cyanocobalamin (Vitamin B12) 1,000 MCG Tab PO SCH (08:39)
[2022-08-19] MEDS: Thiamine 100 MG Tab PO SCH (08:40)
[2022-08-19] MEDS: Magnesium Oxide 400 MG Tab PO SCH (08:40)
[2022-08-19] MEDS: Folic Acid 1 MG Tab PO SCH (08:40)
[2022-08-19] MEDS: Vitamin B Complex With Vitamin C Cap PO SCH (08:41)
[2022-08-19] MEDS: Lactulose Soln 10 GM/15 ML 30 ML UD Cup PO SCH ×3 (08:41→21:34)
[2022-08-19 09:05] LABS: BASOPHILS ABSOLUTE AUTO 0.07 K/mm3 (0.01-0.08); BASOPHILS PERCENT AUTO 1.1 % (0.1-1.2); EOSINOPHILS ABSOLUTE AUTO 0.19 K/mm3 (0.04-0.54); HEMATOCRIT 27.7 % (40.1-51.0); HEMOGLOBIN 8.7 gm/dl (13.7-17.5); IMMATURE GRAN ABSOLUTE AUTO 0.01 K/mm3 (0.00-0.10); IMMATURE GRAN PERCENT AUTO 0.2 % (<=1.0); LYMPHOCYTES ABSOLUTE AUTO 1.53 K/mm3 (1.32-3.57); LYMPHOCYTES PERCENT AUTO 24.5 % (21.8-53.1); MEAN CORPUSCULAR HEMOGLOBIN 32.6 pg (25.7-32.2); MEAN CORPUSCULAR HGB CONC 31.4 g/dl (32.2-35.5); MEAN CORPUSCULAR VOLUME 103.7 fl (79.0-92.2); MONOCYTES ABSOLUTE AUTO 0.78 K/mm3 (0.30-0.82); MONOCYTES PERCENT AUTO 12.5 % (5.3-12.2); NEUTROPHILS ABSOLUTE AUTO 3.66 K/mm3 (1.78-5.38); NEUTROPHILS PERCENT AUTO 58.7 % (34.0-67.9); PLATELET COUNT,PLT 87 K/mm3 (163-337); RED BLOOD CELL COUNT 2.67 M/mm3 (4.63-6.08); WHITE BLOOD CELL COUNT,WBC 6.24 K/mm3 (4.23-9.07)
[2022-08-19 09:23] LABS: INR 2.31; PROTHROMBIN TIME 23.2 SECONDS (9.7-12.0)
[2022-08-19 09:43] LABS: A/G RATIO 0.4 (1-2); ALBUMIN 1.6 g/dl (3.4-5.0); BILIRUBIN TOTAL 8.6 mg/dL (0.2-1.0); BUN/CREATININE RATIO 8.4 (14-18); CALCIUM 7.3 mg/dL (8.5-10.1); EST CRCL DRUG DOSING (CG) 49.09 mL/min; MAGNESIUM 1.4 mg/dL (1.8-2.4)
[2022-08-19 09:46] LABS: CREATININE 1.9 mg/dL (0.7-1.3); PROTEIN TOTAL,TP 5.3 g/dl (6.4-8.2)
[2022-08-19] MEDS ORDERED: Magnesium Sulfate/Water 2 GM/50 ML BAG IV ONE (09:50)
[2022-08-19 10:56] LABS: SLIDE REVIEW ABNORMAL SMEAR
[2022-08-19] MEDS: cefTRIAXone 2 GM in Sodium Chloride 0.9% 100 ML IV SCH (17:54)
[2022-08-19] MEDS: Metoprolol Succinate 50 MG Tab.ER PO SCH (21:35)
[2022-08-19] MEDS: Insulin Glargine,Human Rec. Analog 100 Units/ML 3 ML Pen SUBCUT SCH (21:36)
[2022-08-20 05:55] LABS: BASOPHILS ABSOLUTE AUTO 0.06 K/mm3 (0.01-0.08); BASOPHILS PERCENT AUTO 0.7 % (0.1-1.2); EOSINOPHILS ABSOLUTE AUTO 0.33 K/mm3 (0.04-0.54); HEMATOCRIT 25.2 % (40.1-51.0); IMMATURE GRAN ABSOLUTE AUTO 0.02 K/mm3 (0.00-0.10); IMMATURE GRAN PERCENT AUTO 0.2 % (<=1.0); LYMPHOCYTES ABSOLUTE AUTO 2.85 K/mm3 (1.32-3.57); LYMPHOCYTES PERCENT AUTO 34.4 % (21.8-53.1); MEAN CORPUSCULAR HEMOGLOBIN 32.3 pg (25.7-32.2); MEAN CORPUSCULAR HGB CONC 31.7 g/dl (32.2-35.5); MEAN CORPUSCULAR VOLUME 101.6 fl (79.0-92.2); MEAN PLATELET VOLUME 10.7 fl (9.4-12.3); MONOCYTES ABSOLUTE AUTO 1.03 K/mm3 (0.30-0.82); MONOCYTES PERCENT AUTO 12.4 % (5.3-12.2); NEUTROPHILS ABSOLUTE AUTO 3.99 K/mm3 (1.78-5.38); NEUTROPHILS PERCENT AUTO 48.3 % (34.0-67.9); PLATELET COUNT,PLT 75 K/mm3 (163-337); RED BLOOD CELL COUNT 2.48 M/mm3 (4.63-6.08); WHITE BLOOD CELL COUNT,WBC 8.28 K/mm3 (4.23-9.07)
[2022-08-20 06:06] LABS: A/G RATIO 0.4 (1-2); ALBUMIN 1.5 g/dl (3.4-5.0); ANION GAP 11.2 (5-15); BILIRUBIN TOTAL 7.2 mg/dL (0.2-1.0); BUN/CREATININE RATIO 10.6 (14-18); CALCIUM 7.1 mg/dL (8.5-10.1); EST CRCL DRUG DOSING (CG) 51.82 mL/min; MAGNESIUM 1.4 mg/dL (1.8-2.4); POTASSIUM,K 3.2 mEq/L (3.5-5.1)
[2022-08-20] MEDS: Pantoprazole 40 MG Tab.CR PO SCH ×2 (06:10→16:26)
[2022-08-20] MEDS: Potassium Chloride 20 MEQ Tab.ER PO SCH ×2 (06:10→16:26)
[2022-08-20 06:14] LABS: CREATININE 1.8 mg/dL (0.7-1.3); PROTEIN TOTAL,TP 5.2 g/dl (6.4-8.2)
[2022-08-20 06:19] LABS: SLIDE REVIEW ABNORMAL SMEAR
[2022-08-20] MEDS ORDERED: Magnesium Sulfate/Water 4 GM in Premix Bag 1 BAG IV ONE ×2 (06:36→09:00)
[2022-08-20] MEDS: Insulin Lispro 100 Unit/ML 3 ML KwikPen SUBCUT SCH ×3 (07:04→17:25)
[2022-08-20] MEDS: Magnesium Oxide 400 MG Tab PO SCH (08:26)
[2022-08-20] MEDS: Vitamin B Complex With Vitamin C Cap PO SCH (08:26)
[2022-08-20] MEDS: Torsemide 20 MG Tab PO SCH (08:26)
[2022-08-20] MEDS: Midodrine 5 MG Tab PO SCH ×3 (08:27→17:25)
[2022-08-20] MEDS: Cyanocobalamin (Vitamin B12) 1,000 MCG Tab PO SCH (08:27)
[2022-08-20] MEDS: Ferrous Sulfate 324 MG Tab.EC PO SCH ×2 (08:28→21:49)
[2022-08-20] MEDS: Folic Acid 1 MG Tab PO SCH (08:29)
[2022-08-20] MEDS: atorvaSTATin 20 MG Tab PO SCH (08:29)
[2022-08-20] MEDS: Thiamine 100 MG Tab PO SCH (08:30)
[2022-08-20] MEDS: Lactulose Soln 10 GM/15 ML 30 ML UD Cup PO SCH ×3 (08:30→21:49)
[2022-08-20] MEDS ORDERED: Ondansetron 4 MG/2 ML SDV IVPUSH PRN (12:36)
[2022-08-20] MEDS: cefTRIAXone 2 GM in Sodium Chloride 0.9% 100 ML IV SCH (17:25)
[2022-08-20] MEDS: Metoprolol Succinate 50 MG Tab.ER PO SCH (21:49)
[2022-08-20] MEDS: Insulin Glargine,Human Rec. Analog 100 Units/ML 3 ML Pen SUBCUT SCH (21:51)
[2022-08-21 05:14] LABS: HEMATOCRIT 26.2 % (40.1-51.0); HEMOGLOBIN 8.4 gm/dl (13.7-17.5); MEAN CORPUSCULAR HEMOGLOBIN 32.3 pg (25.7-32.2); MEAN CORPUSCULAR HGB CONC 32.1 g/dl (32.2-35.5); MEAN CORPUSCULAR VOLUME 100.8 fl (79.0-92.2); MEAN PLATELET VOLUME 11.9 fl (9.4-12.3); PLATELET COUNT,PLT 87 K/mm3 (163-337); WHITE BLOOD CELL COUNT,WBC 8.42 K/mm3 (4.23-9.07)
[2022-08-21 05:42] LABS: A/G RATIO 0.4 (1-2); ALBUMIN 1.5 g/dl (3.4-5.0); ANION GAP 11.3 (5-15); BILIRUBIN TOTAL 7.1 mg/dL (0.2-1.0); BUN/CREATININE RATIO 11.9 (14-18); CALCIUM 7.3 mg/dL (8.5-10.1); EST CRCL DRUG DOSING (CG) 58.3 mL/min; POTASSIUM,K 3.3 mEq/L (3.5-5.1)
[2022-08-21 05:57] LABS: CREATININE 1.6 mg/dL (0.7-1.3); PROTEIN TOTAL,TP 5.3 g/dl (6.4-8.2)
[2022-08-21] MEDS: Potassium Chloride 20 MEQ Tab.ER PO SCH ×2 (06:11→16:10)
[2022-08-21] MEDS: Pantoprazole 40 MG Tab.CR PO SCH ×2 (06:11→16:10)
[2022-08-21] MEDS: Insulin Lispro 100 Unit/ML 3 ML KwikPen SUBCUT SCH ×3 (07:22→17:18)
[2022-08-21] MEDS: Torsemide 20 MG Tab PO SCH (08:22)
[2022-08-21] MEDS: Cyanocobalamin (Vitamin B12) 1,000 MCG Tab PO SCH (08:23)
[2022-08-21] MEDS: Thiamine 100 MG Tab PO SCH (08:23)
[2022-08-21] MEDS: Midodrine 5 MG Tab PO SCH ×3 (08:24→17:29)
[2022-08-21] MEDS: Folic Acid 1 MG Tab PO SCH (08:24)
[2022-08-21] MEDS: Ferrous Sulfate 324 MG Tab.EC PO SCH (08:24)
[2022-08-21] MEDS: atorvaSTATin 20 MG Tab PO SCH (08:25)
[2022-08-21] MEDS: Magnesium Oxide 400 MG Tab PO SCH (08:25)
[2022-08-21] MEDS: Vitamin B Complex With Vitamin C Cap PO SCH (08:26)
[2022-08-21] MEDS: Lactulose Soln 10 GM/15 ML 30 ML UD Cup PO SCH ×3 (08:26→21:14)
[2022-08-21] MEDS: cefTRIAXone 2 GM in Sodium Chloride 0.9% 100 ML IV SCH (17:28)
[2022-08-21] MEDS: Metoprolol Succinate 50 MG Tab.ER PO SCH (21:14)
[2022-08-21] MEDS: Insulin Glargine,Human Rec. Analog 100 Units/ML 3 ML Pen SUBCUT SCH (21:14)
[2022-08-22 05:17] LABS: HEMATOCRIT 26.4 % (40.1-51.0); HEMOGLOBIN 8.3 gm/dl (13.7-17.5); MEAN CORPUSCULAR HEMOGLOBIN 31.8 pg (25.7-32.2); MEAN CORPUSCULAR HGB CONC 31.4 g/dl (32.2-35.5); MEAN CORPUSCULAR VOLUME 101.1 fl (79.0-92.2); MEAN PLATELET VOLUME 11.3 fl (9.4-12.3); PLATELET COUNT,PLT 83 K/mm3 (163-337); RED BLOOD CELL COUNT 2.61 M/mm3 (4.63-6.08); WHITE BLOOD CELL COUNT,WBC 8.76 K/mm3 (4.23-9.07)
[2022-08-22 05:41] LABS: A/G RATIO 0.4 (1-2); ALBUMIN 1.5 g/dl (3.4-5.0); ANION GAP 9.6 (5-15); BILIRUBIN TOTAL 7.1 mg/dL (0.2-1.0); CALCIUM 7.6 mg/dL (8.5-10.1); CREATININE 1.5 mg/dL (0.7-1.3); EST CRCL DRUG DOSING (CG) 62.19 mL/min; MAGNESIUM 1.6 mg/dL (1.8-2.4); POTASSIUM,K 3.6 mEq/L (3.5-5.1); PROTEIN TOTAL,TP 5.1 g/dl (6.4-8.2)
[2022-08-22] MEDS ORDERED: Magnesium Sulfate/Water 4 GM in Premix Bag 1 BAG IV ONE (05:47)
[2022-08-22] MEDS: Pantoprazole 40 MG Tab.CR PO SCH ×2 (06:39→15:13)
[2022-08-22] MEDS: Potassium Chloride 20 MEQ Tab.ER PO SCH ×2 (06:39→16:57)
[2022-08-22] MEDS: Insulin Lispro 100 Unit/ML 3 ML KwikPen SUBCUT SCH ×3 (07:48→16:53)
[2022-08-22] MEDS: Torsemide 20 MG Tab PO SCH (08:56)
[2022-08-22] MEDS: atorvaSTATin 20 MG Tab PO SCH (08:56)
[2022-08-22] MEDS: Midodrine 5 MG Tab PO SCH ×3 (08:57→16:57)
[2022-08-22] MEDS: Ferrous Sulfate 324 MG Tab.EC PO SCH (08:57)
[2022-08-22] MEDS: Thiamine 100 MG Tab PO SCH (08:57)
[2022-08-22] MEDS: Folic Acid 1 MG Tab PO SCH (08:57)
[2022-08-22] MEDS: Vitamin B Complex With Vitamin C Cap PO SCH (08:57)
[2022-08-22] MEDS: Cyanocobalamin (Vitamin B12) 1,000 MCG Tab PO SCH (08:57)
[2022-08-22] MEDS: Lactulose Soln 10 GM/15 ML 30 ML UD Cup PO SCH ×3 (08:57→21:25)
[2022-08-22] MEDS: Magnesium Oxide 400 MG Tab PO SCH (08:57)
[2022-08-22] MEDS: Insulin Glargine,Human Rec. Analog 100 Units/ML 3 ML Pen SUBCUT SCH (21:27)
[2022-08-22] MEDS: Metoprolol Succinate 50 MG Tab.ER PO SCH (21:31)
[2022-08-23] MEDS: Pantoprazole 40 MG Tab.CR PO SCH ×2 (06:11→15:28)
[2022-08-23] MEDS: Potassium Chloride 20 MEQ Tab.ER PO SCH ×2 (06:11→17:18)
[2022-08-23 07:55] LABS: A/G RATIO 0.4 (1-2); ALBUMIN 1.4 g/dl (3.4-5.0); ANION GAP 8.5 (5-15); BILIRUBIN TOTAL 7.4 mg/dL (0.2-1.0); BUN/CREATININE RATIO 12.7 (14-18); CALCIUM 7.4 mg/dL (8.5-10.1); EST CRCL DRUG DOSING (CG) 62.19 mL/min; MAGNESIUM 1.5 mg/dL (1.8-2.4); POTASSIUM,K 3.5 mEq/L (3.5-5.1)
[2022-08-23 07:59] LABS: CREATININE 1.5 mg/dL (0.7-1.3)
[2022-08-23 08:00] LABS: PROTEIN TOTAL,TP 5.3 g/dl (6.4-8.2)
[2022-08-23] MEDS: Insulin Lispro 100 Unit/ML 3 ML KwikPen SUBCUT SCH ×3 (08:08→17:18)
[2022-08-23] MEDS ORDERED: Magnesium Sulfate/Water 2 GM in Premix Bag 1 BAG IV ONE (08:17)
[2022-08-23] MEDS: atorvaSTATin 20 MG Tab PO SCH (08:45)
[2022-08-23] MEDS: Cyanocobalamin (Vitamin B12) 1,000 MCG Tab PO SCH (08:45)
[2022-08-23] MEDS: Vitamin B Complex With Vitamin C Cap PO SCH (08:45)
[2022-08-23] MEDS: Folic Acid 1 MG Tab PO SCH (08:45)
[2022-08-23] MEDS: Magnesium Oxide 400 MG Tab PO SCH (08:45)
[2022-08-23] MEDS: Thiamine 100 MG Tab PO SCH (08:45)
[2022-08-23] MEDS: Lactulose Soln 10 GM/15 ML 30 ML UD Cup PO SCH ×3 (08:45→20:59)
[2022-08-23] MEDS: Ferrous Sulfate 324 MG Tab.EC PO SCH (08:45)
[2022-08-23] MEDS: Rifaximin 550 MG Tab PO SCH ×2 (08:45→20:58)
[2022-08-23] MEDS: Midodrine 5 MG Tab PO SCH ×3 (08:45→17:18)
[2022-08-23] MEDS: Torsemide 20 MG Tab PO SCH (08:46)
[2022-08-23] MEDS: Metoprolol Succinate 50 MG Tab.ER PO SCH (20:58)
[2022-08-23] MEDS: Insulin Glargine,Human Rec. Analog 100 Units/ML 3 ML Pen SUBCUT SCH (20:59)
[2022-08-24] MEDS: Pantoprazole 40 MG Tab.CR PO SCH ×2 (06:10→15:11)
[2022-08-24] MEDS: Potassium Chloride 20 MEQ Tab.ER PO SCH ×2 (06:10→16:08)
[2022-08-24 06:19] LABS: A/G RATIO 0.4 (1-2); ALBUMIN 1.4 g/dl (3.4-5.0); BILIRUBIN TOTAL 7.7 mg/dL (0.2-1.0); BUN/CREATININE RATIO 14.3 (14-18); CALCIUM 7.6 mg/dL (8.5-10.1); EST CRCL DRUG DOSING (CG) 66.63 mL/min
[2022-08-24 06:33] LABS: CREATININE 1.4 mg/dL (0.7-1.3); PROTEIN TOTAL,TP 5.2 g/dl (6.4-8.2)
[2022-08-24] MEDS: Insulin Lispro 100 Unit/ML 3 ML KwikPen SUBCUT SCH ×3 (08:20→18:11)
[2022-08-24] MEDS: Cyanocobalamin (Vitamin B12) 1,000 MCG Tab PO SCH (08:20)
[2022-08-24] MEDS: Ferrous Sulfate 324 MG Tab.EC PO SCH (08:20)
[2022-08-24] MEDS: Midodrine 5 MG Tab PO SCH ×3 (08:20→16:08)
[2022-08-24] MEDS: Lactulose Soln 10 GM/15 ML 30 ML UD Cup PO SCH ×3 (08:21→21:48)
[2022-08-24] MEDS: Torsemide 20 MG Tab PO SCH (08:21)
[2022-08-24] MEDS: Rifaximin 550 MG Tab PO SCH ×2 (08:21→21:48)
[2022-08-24] MEDS: Vitamin B Complex With Vitamin C Cap PO SCH (08:21)
[2022-08-24] MEDS: atorvaSTATin 20 MG Tab PO SCH (08:21)
[2022-08-24] MEDS: Folic Acid 1 MG Tab PO SCH (08:21)
[2022-08-24] MEDS: Thiamine 100 MG Tab PO SCH (08:21)
[2022-08-24] MEDS: Magnesium Oxide 400 MG Tab PO SCH (08:24)
[2022-08-24] MEDS ORDERED: Lidocaine 1% 10 ML MDV ONE (13:57)
[2022-08-24] MEDS: Albumin 25% 12.5 GM in Premix Bag 1 BAG IV SCH ×2 (15:11→16:11)
[2022-08-24] MEDS: Insulin Glargine,Human Rec. Analog 100 Units/ML 3 ML Pen SUBCUT SCH (21:47)
[2022-08-24] MEDS: Metoprolol Succinate 50 MG Tab.ER PO SCH (21:48)
[2022-08-25] MEDS: Pantoprazole 40 MG Tab.CR PO SCH (06:08)
[2022-08-25] MEDS: Potassium Chloride 20 MEQ Tab.ER PO SCH (06:08)
[2022-08-25 07:23] LABS: A/G RATIO 0.4 (1-2); ALBUMIN 1.5 g/dl (3.4-5.0); ANION GAP 9.8 (5-15); BILIRUBIN TOTAL 8.4 mg/dL (0.2-1.0); BUN/CREATININE RATIO 13.1 (14-18); CALCIUM 7.8 mg/dL (8.5-10.1); CREATININE 1.3 mg/dL (0.7-1.3); EST CRCL DRUG DOSING (CG) 71.75 mL/min; POTASSIUM,K 3.8 mEq/L (3.5-5.1); PROTEIN TOTAL,TP 5.2 g/dl (6.4-8.2)
[2022-08-25] MEDS: Lactulose Soln 10 GM/15 ML 30 ML UD Cup PO SCH (08:41)
[2022-08-25] MEDS: Cyanocobalamin (Vitamin B12) 1,000 MCG Tab PO SCH (08:42)
[2022-08-25] MEDS: atorvaSTATin 20 MG Tab PO SCH (08:43)
[2022-08-25] MEDS: Ferrous Sulfate 324 MG Tab.EC PO SCH (08:44)
[2022-08-25] MEDS: Vitamin B Complex With Vitamin C Cap PO SCH (08:44)
[2022-08-25] MEDS: Folic Acid 1 MG Tab PO SCH (08:44)
[2022-08-25] MEDS: Rifaximin 550 MG Tab PO SCH (08:44)
[2022-08-25] MEDS: Thiamine 100 MG Tab PO SCH (08:44)
[2022-08-25] MEDS: Torsemide 20 MG Tab PO SCH (08:44)
[2022-08-25] MEDS: Magnesium Oxide 400 MG Tab PO SCH (08:44)
[2022-08-25] MEDS: Midodrine 5 MG Tab PO SCH (09:43)
[2022-08-25] MEDS: Insulin Lispro 100 Unit/ML 3 ML KwikPen SUBCUT SCH (09:45)
== END 2022-08-25 14:27 | disposition home or self-care (01) | DRG 441 ==
LOC: JD.ED 14:56 → JD.MS 17:53
PROVIDERS: ADMIT Internal Medicine; ATTEND Internal Medicine
PROC: 0W9G3ZZ Drainage of Peritoneal Cavity, Percutaneous Approach (ICD-10-PCS; principal; 2022-08-17)
PROC: 0W9G3ZZ Drainage of Peritoneal Cavity, Percutaneous Approach (ICD-10-PCS; 2022-08-18)
DX: K76.82 Hepatic encephalopathy (principal); K72.00 Acute and subacute hepatic failure without coma; E46 Unspecified protein-calorie malnutrition; K70.31 Alcoholic cirrhosis of liver with ascites; D69.6 Thrombocytopenia, unspecified; K72.10 Chronic hepatic failure without coma; H54.7 Unspecified visual loss; E78.00 Pure hypercholesterolemia, unspecified; I10 Essential (primary) hypertension; I50.9 Heart failure, unspecified; I48.91 Unspecified atrial fibrillation; J44.9 Chronic obstructive pulmonary disease, unspecified; E66.9 Obesity, unspecified; F17.210 Nicotine dependence, cigarettes, uncomplicated; E11.65 Type 2 diabetes mellitus with hyperglycemia; E87.6 Hypokalemia; E83.42 Hypomagnesemia; Z98.890 Other specified postprocedural states; Z79.4 Long term (current) use of insulin; Z79.899 Other long term (current) drug therapy; Z88.5 Allergy status to narcotic agent; Z88.8 Allergy status to other drugs, medicaments and biological substances; Z86.73 Personal history of transient ischemic attack (TIA), and cerebral infarction without residual deficits; Z68.30 Body mass index [BMI] 30.0-30.9, adult
CPT/HCPCS: 36415; 49083; 71046; 71046-26; 80053; 81001; 82140; 82947; 83605; 83735; 85007; 85025; 85027; 85610; 86140; 87040; 87205; 89050; 96365; 97116-GP; 97162-GP; 97166-GO; 99285; 99285-25; A9270-GY; J0696; J1815; J1815-GY; J2405; J3475; J3490; P9047

== ENCOUNTER 2023-01-02 12:57 | Emergency (ER) | payer MEDICAID ==
[2023-01-02] MEDS ORDERED: Sodium Chloride 0.9% 10 ML Syringe FLUSH PRN (13:28)
[2023-01-02] MEDS ORDERED: Albuterol/Ipratropium 3.0-0.5 MG/3 ML Neb Soln NEB ONE (13:37)
[2023-01-02 14:55] LABS: CORONAVIRUS COVID-19 NAA NEGATIVE (NEGATIVE); INFLUENZA A NAA NEGATIVE (NEGATIVE); RESPIRATORY SYNCYTIAL VIR NAA NEGATIVE (NEGATIVE)
[2023-01-02] MEDS ORDERED: Lidocaine 1% 10 ML MDV ONE (16:29)
[2023-01-02] MEDS ORDERED: Lidocaine 1% 10 ML MDV INJECT ONE (19:53)
== END 2023-01-02 17:55 | disposition home or self-care (01) ==
LOC: JD.ED 12:57
DX: K74.60 Unspecified cirrhosis of liver (principal); K70.30 Alcoholic cirrhosis of liver without ascites; J90 Pleural effusion, not elsewhere classified; J44.9 Chronic obstructive pulmonary disease, unspecified; I48.91 Unspecified atrial fibrillation; I50.9 Heart failure, unspecified; I10 Essential (primary) hypertension; E11.9 Type 2 diabetes mellitus without complications; E66.9 Obesity, unspecified; Z88.5 Allergy status to narcotic agent; Z88.8 Allergy status to other drugs, medicaments and biological substances
CPT/HCPCS: 0241U; 32555; 36415; 71045; 71046; 86140; 94640; 99285; 99284; J3490; J7620-GY

== ENCOUNTER 2023-01-10 15:28 | Emergency (ER) | payer MEDICAID | END 2023-01-10 17:25 | disposition home or self-care (01) | LOC: JD.ED 15:28 | DX: Z53.8 Procedure and treatment not carried out for other reasons (principal) | CPT/HCPCS: 36415; 49083; 71045; 71045-26; 80048; 80076; 85025; 85610; G0480; J3490 ==

== ENCOUNTER 2023-01-23 15:49 | Emergency (ER) | payer MEDICAID ==
[2023-01-23] MEDS ORDERED: Midodrine 5 MG Tab PO ONE ×2 (19:40→20:45)
[2023-01-23] MEDS ORDERED: Metoprolol Succinate 50 MG Tab.ER PO ONE ×2 (19:40→20:45)
[2023-01-23] MEDS ORDERED: Potassium Chloride 20 MEQ Tab.ER PO ONE ×2 (19:41→20:45)
[2023-01-23] MEDS ORDERED: Insulin Lispro 100 Unit/ML 3 ML KwikPen SUBCUT ONE ×2 (19:42→20:45)
[2023-01-23] MEDS ORDERED: Insulin Glargine,Human Rec. Analog 100 Units/ML 3 ML Pen SUBCUT ONE ×2 (19:43→20:45)
[2023-01-23] MEDS ORDERED: Rifaximin 550 MG Tab PO ONE ×2 (19:44→20:45)
[2023-01-23] MEDS: Gabapentin 100 MG Cap PO SCH (20:33)
[2023-01-24] MEDS: Gabapentin 100 MG Cap PO SCH (09:12)
[2023-01-24] MEDS ORDERED: Rifaximin 550 MG Tab PO SCH (09:15)
[2023-01-24] MEDS ORDERED: Magnesium Oxide 400 MG Tab PO SCH (09:15)
[2023-01-24] MEDS ORDERED: Folic Acid 1 MG Tab PO SCH (09:15)
[2023-01-24] MEDS ORDERED: Ascorbic Acid 500 MG Tab PO SCH (09:15)
[2023-01-24] MEDS ORDERED: Cyanocobalamin (Vitamin B12) 1,000 MCG Tab PO SCH (09:15)
[2023-01-24] MEDS ORDERED: Multivitamin Tab PO SCH (09:30)
[2023-01-24] MEDS ORDERED: Thiamine 100 MG Tab PO SCH (09:30)
[2023-01-24] MEDS ORDERED: Potassium Chloride 20 MEQ Tab.ER PO SCH (09:30)
[2023-01-24] MEDS ORDERED: Pantoprazole 40 MG Tab.CR PO SCH (09:30)
[2023-01-24] MEDS ORDERED: Vitamin B Complex With Vitamin C Cap PO SCH (09:30)
[2023-01-24] MEDS ORDERED: Ferrous Sulfate 324 MG Tab.EC PO SCH (09:30)
[2023-01-24] MEDS: Midodrine 5 MG Tab PO SCH ×2 (09:57→13:22)
[2023-01-24] MEDS ORDERED: Lidocaine 1% 10 ML MDV INJECT ONE (11:37)
[2023-01-24] MEDS ORDERED: FLU (Flulaval Quad) 2023-24(6MOS UP)/PF 60 MCG/0.5 ML Syringe IM ONE (13:00)
[2023-01-24] MEDS ORDERED: Insulin Lispro 100 Unit/ML 3 ML KwikPen SUBCUT ONE (13:10)
[2023-01-24] MEDS ORDERED: Gabapentin 100 MG Cap PO ONE (13:11)
== END 2023-01-24 13:55 | disposition home or self-care (01) ==
LOC: JD.ED 15:49
DX: J90 Pleural effusion, not elsewhere classified (principal); I48.91 Unspecified atrial fibrillation; I11.0 Hypertensive heart disease with heart failure; I50.9 Heart failure, unspecified; E78.00 Pure hypercholesterolemia, unspecified; J44.9 Chronic obstructive pulmonary disease, unspecified; E11.9 Type 2 diabetes mellitus without complications; E66.9 Obesity, unspecified; Z68.30 Body mass index [BMI] 30.0-30.9, adult; Z86.16 Personal history of COVID-19; Z86.73 Personal history of transient ischemic attack (TIA), and cerebral infarction without residual deficits; Z87.891 Personal history of nicotine dependence; Z88.5 Allergy status to narcotic agent; Z88.8 Allergy status to other drugs, medicaments and biological substances; Z79.4 Long term (current) use of insulin; Z79.899 Other long term (current) drug therapy
CPT/HCPCS: 32555; 71045; 71046; 82947; 90471; 90686; 99285; A9270; J1815; 99284; G0008; J3490

== ENCOUNTER 2023-01-29 12:27 | Emergency (ER) | payer MEDICAID ==
[2023-01-29 13:30] LABS: BASOPHILS ABSOLUTE AUTO 0.1 K/mm3 (0.0-0.2); BASOPHILS PERCENT AUTO 0.7 % (0.0-1.0); EOSINOPHILS ABSOLUTE AUTO 0.6 K/mm3 (0.0-0.4); EOSINOPHILS PERCENT AUTO 5.3 % (0.0-6.0); HEMATOCRIT 34.5 % (42.0-52.0); HEMOGLOBIN 11.7 gm/dl (14.0-18.0); IMMATURE GRAN ABSOLUTE AUTO 0.04 K/mm3 (0.00-0.05); IMMATURE GRAN PERCENT AUTO 0.4 % (0.0-0.4); LYMPHOCYTES ABSOLUTE AUTO 1.4 K/mm3 (1.0-4.8); LYMPHOCYTES PERCENT AUTO 12.9 % (24.0-44.0); MEAN CORPUSCULAR HGB CONC 33.9 g/dl (32.0-36.0); MEAN CORPUSCULAR VOLUME 94.3 fl (83.0-99.0); MEAN PLATELET VOLUME 13.2 fl (9.4-12.4); MONOCYTES ABSOLUTE AUTO 1.3 K/mm3 (0.0-0.8); MONOCYTES PERCENT AUTO 11.4 % (0.0-8.0); NEUTROPHILS ABSOLUTE AUTO 7.7 K/mm3 (1.8-7.7); NEUTROPHILS PERCENT AUTO 69.3 % (41.0-71.0); PLATELET COUNT,PLT 155 K/mm3 (150-400); RED BLOOD CELL COUNT 3.66 M/mm3 (4.52-5.90); WHITE BLOOD CELL COUNT,WBC 11.04 K/mm3 (3.9-11.3)
[2023-01-29 13:48] LABS: INR 2.19; PROTHROMBIN TIME 22.1 SECONDS (9.7-12.0)
[2023-01-29 13:50] LABS: A/G RATIO 0.4 (1-2); ANION GAP 14.4 (5-15); BILIRUBIN TOTAL 4.4 mg/dL (0.2-1.0); BUN/CREATININE RATIO 12.7 (14-18); CALCIUM 8.2 mg/dL (8.5-10.1); EST CRCL DRUG DOSING (CG) 62.19 mL/min; POTASSIUM,K 5.4 mEq/L (3.5-5.1)
[2023-01-29 13:53] LABS: CREATININE 1.5 mg/dL (0.7-1.3); PROTEIN TOTAL,TP 6.5 g/dl (6.4-8.2)
[2023-01-29 14:01] LABS: SLIDE REVIEW ABNORMAL SMEAR
== END 2023-01-29 16:06 | disposition home or self-care (01) ==
LOC: JD.ED 12:27
DX: J90 Pleural effusion, not elsewhere classified (principal); K76.9 Liver disease, unspecified; I48.91 Unspecified atrial fibrillation; I11.0 Hypertensive heart disease with heart failure; I50.9 Heart failure, unspecified; I25.2 Old myocardial infarction; J44.9 Chronic obstructive pulmonary disease, unspecified; E11.9 Type 2 diabetes mellitus without complications; E66.9 Obesity, unspecified; Z68.30 Body mass index [BMI] 30.0-30.9, adult; Z86.16 Personal history of COVID-19; Z88.5 Allergy status to narcotic agent; Z88.8 Allergy status to other drugs, medicaments and biological substances; Z79.899 Other long term (current) drug therapy; Z79.4 Long term (current) use of insulin
CPT/HCPCS: 32554; 36415; 71045; 71045-26; 80053; 85025; 85610; 99284; 99285-25

== ENCOUNTER 2023-02-14 09:58 | Inpatient (IN) | payer MEDICAID ==
[2023-02-14] MEDS ORDERED: Metoclopramide 10 MG/2 ML SDV IVPUSH ONE (10:26)
[2023-02-14] MEDS ORDERED: fentaNYL 100 MCG/2 ML SDV IVPUSH ONE (10:27)
[2023-02-14] MEDS ORDERED: Lactated Ringers 1,000 ML IV SCH (10:30)
[2023-02-14] MEDS ORDERED: Midodrine 5 MG Tab PO ONE (10:38)
[2023-02-14 10:46] LABS: BASOPHILS PERCENT AUTO 0.3 % (0.0-1.0); EOSINOPHILS ABSOLUTE AUTO 0.1 K/mm3 (0.0-0.4); EOSINOPHILS PERCENT AUTO 0.9 % (0.0-6.0); IMMATURE GRAN ABSOLUTE AUTO 0.06 K/mm3 (0.00-0.05); IMMATURE GRAN PERCENT AUTO 0.5 % (0.0-0.4); LYMPHOCYTES ABSOLUTE AUTO 0.9 K/mm3 (1.0-4.8); LYMPHOCYTES PERCENT AUTO 7.3 % (24.0-44.0); MEAN CORPUSCULAR HEMOGLOBIN 31.3 pg (28.0-32.0); MEAN CORPUSCULAR HGB CONC 35.3 g/dl (32.0-36.0); MEAN CORPUSCULAR VOLUME 88.8 fl (83.0-99.0); MONOCYTES ABSOLUTE AUTO 0.7 K/mm3 (0.0-0.8); MONOCYTES PERCENT AUTO 5.5 % (0.0-8.0); NEUTROPHILS PERCENT AUTO 85.5 % (41.0-71.0); PLATELET COUNT,PLT 183 K/mm3 (150-400); RED BLOOD CELL COUNT 3.83 M/mm3 (4.52-5.90); WHITE BLOOD CELL COUNT,WBC 11.72 K/mm3 (3.9-11.3)
[2023-02-14 10:49] LABS: INR 2.16; PROTHROMBIN TIME 21.8 SECONDS (9.7-12.0)
[2023-02-14 10:50] LABS: PTT,PARTIAL THROMBOPLSTIN TIME 41.6 SECONDS (21.7-31.4)
[2023-02-14 11:14] LABS: A/G RATIO 0.6 (1-2); ALBUMIN 2.3 g/dl (3.4-5.0); ANION GAP 18.5 (5-15); BILIRUBIN TOTAL 3.4 mg/dL (0.2-1.0); BUN/CREATININE RATIO 13.8 (14-18); CALCIUM 8.4 mg/dL (8.5-10.1); CREATININE 3.2 mg/dL (0.7-1.3); EST CRCL DRUG DOSING (CG) 30.99 mL/min; MAGNESIUM 2.3 mg/dL (1.8-2.4); PROTEIN TOTAL,TP 6.4 g/dl (6.4-8.2); SLIDE REVIEW ABNORMAL SMEAR
[2023-02-14 11:17] LABS: POTASSIUM,K 5.5 mEq/L (3.5-5.1)
[2023-02-14] MEDS ORDERED: Albumin 25% 12.5 GM/50 ML BAG IV ONE (12:25)
[2023-02-14] MEDS ORDERED: Albumin 25% 12.5 GM in Premix Bag 1 BAG IV ONE (13:10)
[2023-02-14] MEDS ORDERED: Rifaximin 550 MG Tab PO ONE (15:23)
[2023-02-14] MEDS ORDERED: Lactulose Soln 10 GM/15 ML 30 ML UD Cup PO ONE (15:24)
[2023-02-14] MEDS ORDERED: oxyCODONE 5 MG Tab PO PRN (15:37)
[2023-02-14] MEDS ORDERED: Phytonadione 5 MG in Sodium Chloride 0.9% 50 ML IV ONE (17:32)
[2023-02-14] MEDS: Midodrine 5 MG Tab PO SCH (17:58)
[2023-02-14] MEDS: Gabapentin 100 MG Cap PO SCH (17:58)
[2023-02-14] MEDS: cefTRIAXone 2 GM in Sodium Chloride 0.9% 100 ML IV SCH (17:59)
[2023-02-14] MEDS ORDERED: 50% Dextrose in Water 50 ML Syringe IVPUSH PRN (18:21)
[2023-02-14] MEDS: Insulin Lispro 100 Unit/ML 3 ML KwikPen SUBCUT SCH (18:25)
[2023-02-14] MEDS ORDERED: Heparin Sodium 5,000 Units/ML Vial SUBCUT SCH (21:00)
[2023-02-14] MEDS ORDERED: Lactulose Soln 10 GM/15 ML 30 ML UD Cup PO SCH (21:00)
[2023-02-14] MEDS: Rifaximin 550 MG Tab PO SCH (21:21)
[2023-02-14] MEDS: Lactulose Soln 10 GM/15 ML 30 ML UD Cup PO SCH (21:21)
[2023-02-15 06:38] LABS: A/G RATIO 0.7 (1-2); ALBUMIN 2.2 g/dl (3.4-5.0); ANION GAP 18.7 (5-15); BILIRUBIN TOTAL 2.6 mg/dL (0.2-1.0); BUN/CREATININE RATIO 14.3 (14-18); CALCIUM 8.1 mg/dL (8.5-10.1); EST CRCL DRUG DOSING (CG) 30.11 mL/min; POTASSIUM,K 4.7 mEq/L (3.5-5.1); PROTEIN TOTAL,TP 5.4 g/dl (6.4-8.2)
[2023-02-15] MEDS: Gabapentin 100 MG Cap PO SCH ×3 (06:45→17:23)
[2023-02-15 06:46] LABS: INR 2.21; PROTHROMBIN TIME 22.3 SECONDS (9.7-12.0)
[2023-02-15] MEDS: Midodrine 5 MG Tab PO SCH ×3 (06:48→17:22)
[2023-02-15 07:20] LABS: BASOPHILS ABSOLUTE AUTO 0.1 K/mm3 (0.0-0.2); BASOPHILS PERCENT AUTO 0.7 % (0.0-1.0); EOSINOPHILS ABSOLUTE AUTO 0.4 K/mm3 (0.0-0.4); EOSINOPHILS PERCENT AUTO 4.2 % (0.0-6.0); HEMATOCRIT 28.1 % (42.0-52.0); IMMATURE GRAN ABSOLUTE AUTO 0.03 K/mm3 (0.00-0.05); IMMATURE GRAN PERCENT AUTO 0.3 % (0.0-0.4); LYMPHOCYTES ABSOLUTE AUTO 1.7 K/mm3 (1.0-4.8); LYMPHOCYTES PERCENT AUTO 16.1 % (24.0-44.0); MEAN CORPUSCULAR HEMOGLOBIN 31.7 pg (28.0-32.0); MEAN CORPUSCULAR HGB CONC 36.3 g/dl (32.0-36.0); MEAN CORPUSCULAR VOLUME 87.3 fl (83.0-99.0); MONOCYTES PERCENT AUTO 9.6 % (0.0-8.0); NEUTROPHILS ABSOLUTE AUTO 7.3 K/mm3 (1.8-7.7); NEUTROPHILS PERCENT AUTO 69.1 % (41.0-71.0); NRBC ABSOLUTE 0.02 (0.00-0.02); NRBC PERCENT 0.2 % (0.0-0.2); PLATELET COUNT,PLT 153 K/mm3 (150-400); RED BLOOD CELL COUNT 3.22 M/mm3 (4.52-5.90); WHITE BLOOD CELL COUNT,WBC 10.53 K/mm3 (3.9-11.3)
[2023-02-15 07:26] LABS: HEMOGLOBIN 10.2 gm/dl (14.0-18.0)
[2023-02-15 08:45] LABS: SLIDE REVIEW ABNORMAL SMEAR
[2023-02-15] MEDS: Insulin Lispro 100 Unit/ML 3 ML KwikPen SUBCUT SCH ×3 (08:49→17:23)
[2023-02-15] MEDS: Lactulose Soln 10 GM/15 ML 30 ML UD Cup PO SCH ×2 (08:49→21:06)
[2023-02-15] MEDS: Folic Acid 1 MG Tab PO SCH (08:50)
[2023-02-15] MEDS: Thiamine 100 MG Tab PO SCH (08:50)
[2023-02-15] MEDS: Vitamin B Complex With Vitamin C Cap PO SCH (08:50)
[2023-02-15] MEDS: Magnesium Oxide 400 MG Tab PO SCH (08:50)
[2023-02-15] MEDS: Rifaximin 550 MG Tab PO SCH ×2 (08:50→21:06)
[2023-02-15] MEDS: cefTRIAXone 2 GM in Sodium Chloride 0.9% 100 ML IV SCH (18:31)
[2023-02-15] MEDS: Albumin 25% 50 ML IV SCH ×2 (21:10→22:07)
[2023-02-16 05:54] LABS: BASOPHILS ABSOLUTE AUTO 0.1 K/mm3 (0.0-0.2); BASOPHILS PERCENT AUTO 0.7 % (0.0-1.0); EOSINOPHILS ABSOLUTE AUTO 0.5 K/mm3 (0.0-0.4); EOSINOPHILS PERCENT AUTO 5.4 % (0.0-6.0); HEMATOCRIT 27.3 % (42.0-52.0); HEMOGLOBIN 9.6 gm/dl (14.0-18.0); IMMATURE GRAN ABSOLUTE AUTO 0.03 K/mm3 (0.00-0.05); IMMATURE GRAN PERCENT AUTO 0.3 % (0.0-0.4); LYMPHOCYTES ABSOLUTE AUTO 1.3 K/mm3 (1.0-4.8); LYMPHOCYTES PERCENT AUTO 13.3 % (24.0-44.0); MEAN CORPUSCULAR HEMOGLOBIN 31.3 pg (28.0-32.0); MEAN CORPUSCULAR HGB CONC 35.2 g/dl (32.0-36.0); MEAN CORPUSCULAR VOLUME 88.9 fl (83.0-99.0); MONOCYTES PERCENT AUTO 10.8 % (0.0-8.0); NEUTROPHILS ABSOLUTE AUTO 6.6 K/mm3 (1.8-7.7); NEUTROPHILS PERCENT AUTO 69.5 % (41.0-71.0); PLATELET COUNT,PLT 126 K/mm3 (150-400); RED BLOOD CELL COUNT 3.07 M/mm3 (4.52-5.90); WHITE BLOOD CELL COUNT,WBC 9.44 K/mm3 (3.9-11.3)
[2023-02-16 06:02] LABS: INR 2.16; PROTHROMBIN TIME 21.8 SECONDS (9.7-12.0)
[2023-02-16 06:12] LABS: A/G RATIO 0.8 (1-2); ALBUMIN 2.4 g/dl (3.4-5.0); ANION GAP 19.2 (5-15); BILIRUBIN TOTAL 2.6 mg/dL (0.2-1.0); BUN/CREATININE RATIO 15.8 (14-18); CALCIUM 7.9 mg/dL (8.5-10.1); CREATININE 2.4 mg/dL (0.7-1.3); EST CRCL DRUG DOSING (CG) 37.64 mL/min; POTASSIUM,K 4.2 mEq/L (3.5-5.1); PROTEIN TOTAL,TP 5.5 g/dl (6.4-8.2)
[2023-02-16] MEDS: Midodrine 5 MG Tab PO SCH ×3 (06:15→17:58)
[2023-02-16] MEDS: Gabapentin 100 MG Cap PO SCH ×3 (06:15→17:58)
[2023-02-16 06:48] LABS: SLIDE REVIEW ABNORMAL SMEAR
[2023-02-16] MEDS: Insulin Lispro 100 Unit/ML 3 ML KwikPen SUBCUT SCH ×3 (09:25→17:55)
[2023-02-16] MEDS: Lactulose Soln 10 GM/15 ML 30 ML UD Cup PO SCH ×2 (09:37→20:56)
[2023-02-16] MEDS: Thiamine 100 MG Tab PO SCH (09:37)
[2023-02-16] MEDS: Folic Acid 1 MG Tab PO SCH (09:37)
[2023-02-16] MEDS: Rifaximin 550 MG Tab PO SCH ×2 (09:37→20:56)
[2023-02-16] MEDS: Magnesium Oxide 400 MG Tab PO SCH (09:37)
[2023-02-16] MEDS: Vitamin B Complex With Vitamin C Cap PO SCH (09:37)
[2023-02-16] MEDS ORDERED: Bumetanide 1 MG/4 ML MDV IVPUSH ONE (12:30)
[2023-02-16] MEDS: Metoprolol Succinate 50 MG Tab.ER PO SCH (12:42)
[2023-02-16] MEDS: cefTRIAXone 2 GM in Sodium Chloride 0.9% 100 ML IV SCH (18:35)
[2023-02-17 05:41] LABS: BASOPHILS ABSOLUTE AUTO 0.1 K/mm3 (0.0-0.2); EOSINOPHILS ABSOLUTE AUTO 0.5 K/mm3 (0.0-0.4); EOSINOPHILS PERCENT AUTO 6.7 % (0.0-6.0); HEMOGLOBIN 9.7 gm/dl (14.0-18.0); IMMATURE GRAN ABSOLUTE AUTO 0.02 K/mm3 (0.00-0.05); IMMATURE GRAN PERCENT AUTO 0.3 % (0.0-0.4); LYMPHOCYTES ABSOLUTE AUTO 1.3 K/mm3 (1.0-4.8); LYMPHOCYTES PERCENT AUTO 17.3 % (24.0-44.0); MEAN CORPUSCULAR HEMOGLOBIN 31.9 pg (28.0-32.0); MEAN CORPUSCULAR HGB CONC 35.9 g/dl (32.0-36.0); MEAN CORPUSCULAR VOLUME 88.8 fl (83.0-99.0); MONOCYTES ABSOLUTE AUTO 0.8 K/mm3 (0.0-0.8); MONOCYTES PERCENT AUTO 10.6 % (0.0-8.0); NEUTROPHILS ABSOLUTE AUTO 4.7 K/mm3 (1.8-7.7); NEUTROPHILS PERCENT AUTO 64.1 % (41.0-71.0); RED BLOOD CELL COUNT 3.04 M/mm3 (4.52-5.90); WHITE BLOOD CELL COUNT,WBC 7.27 K/mm3 (3.9-11.3)
[2023-02-17 06:03] LABS: INR 2.22; PROTHROMBIN TIME 22.4 SECONDS (9.7-12.0)
[2023-02-17 06:22] LABS: A/G RATIO 0.7 (1-2); ALBUMIN 2.1 g/dl (3.4-5.0); ANION GAP 15.3 (5-15); BILIRUBIN TOTAL 2.9 mg/dL (0.2-1.0); BUN/CREATININE RATIO 16.7 (14-18); CALCIUM 8.2 mg/dL (8.5-10.1); CREATININE 2.1 mg/dL (0.7-1.3); EST CRCL DRUG DOSING (CG) 43.02 mL/min; POTASSIUM,K 3.3 mEq/L (3.5-5.1); PROTEIN TOTAL,TP 5.2 g/dl (6.4-8.2)
[2023-02-17 06:54] LABS: PLATELET COUNT,PLT 113 K/mm3 (150-400); SLIDE REVIEW ABNORMAL SMEAR
[2023-02-17] MEDS: Insulin Lispro 100 Unit/ML 3 ML KwikPen SUBCUT SCH ×2 (07:52→12:17)
[2023-02-17] MEDS: Metoprolol Succinate 50 MG Tab.ER PO SCH (10:15)
[2023-02-17] MEDS: Rifaximin 550 MG Tab PO SCH (10:15)
[2023-02-17] MEDS: Folic Acid 1 MG Tab PO SCH (10:15)
[2023-02-17] MEDS: Magnesium Oxide 400 MG Tab PO SCH (10:15)
[2023-02-17] MEDS: Vitamin B Complex With Vitamin C Cap PO SCH (10:15)
[2023-02-17] MEDS: Thiamine 100 MG Tab PO SCH (10:15)
[2023-02-17] MEDS: Lactulose Soln 10 GM/15 ML 30 ML UD Cup PO SCH (10:15)
[2023-02-17] MEDS: Midodrine 5 MG Tab PO SCH ×2 (11:05)
[2023-02-17] MEDS: Gabapentin 100 MG Cap PO SCH ×2 (11:05)
[2023-02-17] MEDS: Potassium Chloride 10 MEQ in Premix Bag 1 BAG IV SCH ×3 (11:44→13:58)
[2023-02-17] MEDS ORDERED: Potassium Chloride 20 MEQ Tab.ER PO ONE (14:00)
== END 2023-02-17 15:30 | disposition home or self-care (01) | DRG 432 ==
LOC: JD.ED 09:58 → JD.ICU 15:35
PROVIDERS: ADMIT Hospitalist; ATTEND Hospitalist
DX: K70.31 Alcoholic cirrhosis of liver with ascites (principal); K76.7 Hepatorenal syndrome; J91.8 Pleural effusion in other conditions classified elsewhere; N18.5 Chronic kidney disease, stage 5; E87.1 Hypo-osmolality and hyponatremia; E46 Unspecified protein-calorie malnutrition; F10.10 Alcohol abuse, uncomplicated; H54.62 Unqualified visual loss, left eye, normal vision right eye; I48.91 Unspecified atrial fibrillation; E78.00 Pure hypercholesterolemia, unspecified; J44.9 Chronic obstructive pulmonary disease, unspecified; F41.9 Anxiety disorder, unspecified; E66.9 Obesity, unspecified; I95.1 Orthostatic hypotension; K76.9 Liver disease, unspecified; E87.6 Hypokalemia; I12.9 Hypertensive chronic kidney disease with stage 1 through stage 4 chronic kidney disease, or unspecified chronic kidney disease; K72.10 Chronic hepatic failure without coma; E11.22 Type 2 diabetes mellitus with diabetic chronic kidney disease; K76.82 Hepatic encephalopathy; D63.1 Anemia in chronic kidney disease; E88.09 Other disorders of plasma-protein metabolism, not elsewhere classified; Z88.5 Allergy status to narcotic agent; Z88.8 Allergy status to other drugs, medicaments and biological substances; Z79.899 Other long term (current) drug therapy; Z79.4 Long term (current) use of insulin; I25.2 Old myocardial infarction; Z95.5 Presence of coronary angioplasty implant and graft; Z86.73 Personal history of transient ischemic attack (TIA), and cerebral infarction without residual deficits; Z68.28 Body mass index [BMI] 28.0-28.9, adult; Z86.16 Personal history of COVID-19; Z98.890 Other specified postprocedural states
CPT/HCPCS: 36415; 70450; 70450-26; 71045; 71045-26; 74176; 74176-26; 80053; 82140; 82947; 82977; 83605; 83690; 83735; 83880; 85025; 85610; 85730; 86140; 87040; 96361; 96365; 96366; 96375; 97110-GP; 97116-GP; 97162-GP; 99285; 99285-25; A9270-GY; J0696; J1815; J2765; J3010; J3430; J3480; J3490; J7120; P9047

== ENCOUNTER 2023-03-03 14:25 | Emergency (ER) | payer MEDICAID | END 2023-03-03 16:00 | disposition home or self-care (01) | LOC: JD.ED 14:25 | DX: K76.7 Hepatorenal syndrome (principal); J90 Pleural effusion, not elsewhere classified; J44.9 Chronic obstructive pulmonary disease, unspecified; I11.0 Hypertensive heart disease with heart failure; I50.9 Heart failure, unspecified; I25.2 Old myocardial infarction; E11.9 Type 2 diabetes mellitus without complications; E78.00 Pure hypercholesterolemia, unspecified; E66.9 Obesity, unspecified; Z68.29 Body mass index [BMI] 29.0-29.9, adult; Z88.5 Allergy status to narcotic agent; Z88.8 Allergy status to other drugs, medicaments and biological substances; Z86.16 Personal history of COVID-19; Z79.899 Other long term (current) drug therapy; Z79.4 Long term (current) use of insulin | CPT/HCPCS: 49083; 99283-25; 99284 ==

== ENCOUNTER 2023-03-07 12:20 | Emergency (ER) | payer MEDICAID ==
[2023-03-07] MEDS: Sodium Chloride 0.9% 10 ML Syringe FLUSH PRN ×2 (13:29→15:00)
[2023-03-07 13:56] LABS: BASOPHILS ABSOLUTE AUTO 0.1 K/mm3 (0.0-0.2); BASOPHILS PERCENT AUTO 1.2 % (0.0-1.0); EOSINOPHILS PERCENT AUTO 10.7 % (0.0-6.0); HEMATOCRIT 31.3 % (42.0-52.0); HEMOGLOBIN 11.2 gm/dl (14.0-18.0); IMMATURE GRAN ABSOLUTE AUTO 0.03 K/mm3 (0.00-0.05); IMMATURE GRAN PERCENT AUTO 0.3 % (0.0-0.4); LYMPHOCYTES ABSOLUTE AUTO 1.4 K/mm3 (1.0-4.8); LYMPHOCYTES PERCENT AUTO 14.2 % (24.0-44.0); MEAN CORPUSCULAR HEMOGLOBIN 31.3 pg (28.0-32.0); MEAN CORPUSCULAR HGB CONC 35.8 g/dl (32.0-36.0); MEAN CORPUSCULAR VOLUME 87.4 fl (83.0-99.0); MONOCYTES PERCENT AUTO 10.8 % (0.0-8.0); NEUTROPHILS PERCENT AUTO 62.8 % (41.0-71.0); PLATELET COUNT,PLT 171 K/mm3 (150-400); RED BLOOD CELL COUNT 3.58 M/mm3 (4.52-5.90); WHITE BLOOD CELL COUNT,WBC 9.54 K/mm3 (3.9-11.3)
[2023-03-07 14:14] LABS: A/G RATIO 0.7 (1-2); ALBUMIN 2.4 g/dl (3.4-5.0); ANION GAP 20.2 (5-15); BILIRUBIN TOTAL 3.8 mg/dL (0.2-1.0); BUN/CREATININE RATIO 11.4 (14-18); CALCIUM 7.8 mg/dL (8.5-10.1); EST CRCL DRUG DOSING (CG) 22.21 mL/min; POTASSIUM,K 3.2 mEq/L (3.5-5.1)
[2023-03-07 14:19] LABS: CREATININE 4.2 mg/dL (0.7-1.3); PROTEIN TOTAL,TP 5.7 g/dl (6.4-8.2)
[2023-03-07] MEDS ORDERED: Sodium Chloride 0.9% 1,000 ML IV STA (14:24)
[2023-03-07] MEDS ORDERED: Potassium Chloride 20 MEQ Tab.ER PO ONE (14:25)
[2023-03-07] MEDS ORDERED: Albumin 25% 12.5 GM in Premix Bag 1 BAG IV ONE (14:25)
[2023-03-07 14:38] LABS: SLIDE REVIEW ABNORMAL SMEAR
[2023-03-07 14:47] LABS: INR 2.05; PROTHROMBIN TIME 20.8 SECONDS (9.7-12.0)
[2023-03-07] MEDS: Albumin 25% 12.5 GM in Premix Bag 1 BAG IV SCH ×7 (16:38→23:44)
[2023-03-07] MEDS ORDERED: Rifaximin 550 MG Tab PO ONE (20:37)
[2023-03-07] MEDS ORDERED: atorvaSTATin 20 MG Tab PO ONE (20:39)
[2023-03-07] MEDS: Insulin Glargine,Human Rec. Analog 100 Units/ML 3 ML Pen SUBCUT SCH ×2 (20:55→21:27)
[2023-03-07] MEDS ORDERED: Albumin 25% 50 ML ONE (23:38)
[2023-03-08 05:28] LABS: ANION GAP 16.6 (5-15); BUN/CREATININE RATIO 11.9 (14-18); CALCIUM 8.1 mg/dL (8.5-10.1); CREATININE 4.2 mg/dL (0.7-1.3); EST CRCL DRUG DOSING (CG) 22.21 mL/min; POTASSIUM,K 3.6 mEq/L (3.5-5.1)
[2023-03-08] MEDS: Non-Formulary Medication 1 Each (Insulin Lispro [Humalog] 100 UNIT/ML Pen) SUBCUT SCH ×2 (07:00→11:00)
[2023-03-08] MEDS: Non-Formulary Medication 1 Each (Midodrine [Midodrine] 5 MG Tablet) PO SCH ×2 (07:00→11:00)
[2023-03-08] MEDS: Non-Formulary Medication 1 Each (Gabapentin [Neurontin] 100 MG Cap) PO SCH ×2 (07:00→09:00)
[2023-03-08] MEDS ORDERED: CYANOCOBALAMIN 500 MCG PO ONE (09:00)
[2023-03-08] MEDS ORDERED: Non-Formulary Medication 1 Each (Ferrous Sulfate [Ferrous Sulfate] 324 MG Tablet.Dr) PO SCH (09:00)
[2023-03-08] MEDS ORDERED: THIAMINE 100 MG PO SCH (09:00)
[2023-03-08] MEDS ORDERED: Non-Formulary Medication 1 Each (Rifaximin [Xifaxan] 550 MG Tablet) PO SCH (09:00)
[2023-03-08] MEDS ORDERED: Non-Formulary Medication 1 Each (Pantoprazole [ProTONIX***] 40 MG Tab.Cr) PO SCH (09:00)
[2023-03-08] MEDS ORDERED: Non-Formulary Medication 1 Each (Folic Acid [Folic Acid] 1 MG Tablet) PO SCH (09:00)
[2023-03-08] MEDS ORDERED: Non-Formulary Medication 1 Each (Magnesium Oxide [Magnesium Oxide] 400 MG Tablet) PO SCH (09:00)
[2023-03-08] MEDS ORDERED: ASCORBIC ACID 500 MG PO ONE (09:00)
[2023-03-08] MEDS ORDERED: VITAMIN B COMPLEX PO SCH (09:00)
[2023-03-08] MEDS ORDERED: POTASSIUM CHLORIDE 10 MEQ PO SCH (09:00)
[2023-03-08] MEDS: Albumin 25% 12.5 GM in Premix Bag 1 BAG IV SCH ×4 (12:50→16:51)
[2023-03-08] MEDS: Lactulose Soln 10 GM/15 ML 30 ML UD Cup PO SCH ×2 (17:10→21:57)
[2023-03-08] MEDS: Gabapentin 100 MG Cap PO SCH ×2 (17:20→21:50)
[2023-03-08] MEDS: Midodrine 5 MG Tab PO SCH (17:59)
[2023-03-08] MEDS: Insulin Lispro 100 Unit/ML 3 ML KwikPen SUBCUT SCH (18:00)
[2023-03-08 18:48] LABS: BUN/CREATININE RATIO 11.7 (14-18); CALCIUM 8.3 mg/dL (8.5-10.1); CREATININE 4.1 mg/dL (0.7-1.3); EST CRCL DRUG DOSING (CG) 22.75 mL/min
[2023-03-08] MEDS ORDERED: Metoprolol Succinate 50 MG Tab.ER PO SCH (21:00)
[2023-03-08] MEDS ORDERED: Non-Formulary Medication 1 Each (Atorvastatin 10 MG Tablet) PO SCH (21:00)
[2023-03-08] MEDS ORDERED: atorvaSTATin 20 MG Tab PO SCH (21:00)
[2023-03-08] MEDS: Rifaximin 550 MG Tab PO SCH (21:47)
[2023-03-08] MEDS: Insulin Glargine,Human Rec. Analog 100 Units/ML 3 ML Pen SUBCUT SCH (21:54)
[2023-03-09 05:27] LABS: BASOPHILS ABSOLUTE AUTO 0.1 K/mm3 (0.0-0.2); BASOPHILS PERCENT AUTO 1.3 % (0.0-1.0); EOSINOPHILS ABSOLUTE AUTO 0.8 K/mm3 (0.0-0.4); EOSINOPHILS PERCENT AUTO 13.5 % (0.0-6.0); HEMATOCRIT 24.9 % (42.0-52.0); IMMATURE GRAN ABSOLUTE AUTO 0.02 K/mm3 (0.00-0.05); IMMATURE GRAN PERCENT AUTO 0.3 % (0.0-0.4); LYMPHOCYTES ABSOLUTE AUTO 1.2 K/mm3 (1.0-4.8); LYMPHOCYTES PERCENT AUTO 18.8 % (24.0-44.0); MEAN CORPUSCULAR HEMOGLOBIN 31.3 pg (28.0-32.0); MEAN CORPUSCULAR HGB CONC 36.1 g/dl (32.0-36.0); MEAN CORPUSCULAR VOLUME 86.5 fl (83.0-99.0); MONOCYTES ABSOLUTE AUTO 0.7 K/mm3 (0.0-0.8); MONOCYTES PERCENT AUTO 11.4 % (0.0-8.0); NEUTROPHILS ABSOLUTE AUTO 3.4 K/mm3 (1.8-7.7); NEUTROPHILS PERCENT AUTO 54.7 % (41.0-71.0); PLATELET COUNT,PLT 146 K/mm3 (150-400); RED BLOOD CELL COUNT 2.88 M/mm3 (4.52-5.90); WHITE BLOOD CELL COUNT,WBC 6.23 K/mm3 (3.9-11.3)
[2023-03-09 05:33] LABS: A/G RATIO 1.2 (1-2); ALBUMIN 3.1 g/dl (3.4-5.0); ANION GAP 17.2 (5-15); BILIRUBIN TOTAL 3.9 mg/dL (0.2-1.0); BUN/CREATININE RATIO 12.3 (14-18); CALCIUM 8.2 mg/dL (8.5-10.1); EST CRCL DRUG DOSING (CG) 23.32 mL/min; MAGNESIUM 2.8 mg/dL (1.8-2.4); POTASSIUM,K 4.2 mEq/L (3.5-5.1); PROTEIN TOTAL,TP 5.6 g/dl (6.4-8.2)
[2023-03-09] MEDS: Insulin Lispro 100 Unit/ML 3 ML KwikPen SUBCUT SCH ×3 (07:13→17:22)
[2023-03-09] MEDS: Midodrine 5 MG Tab PO SCH ×3 (07:29→17:24)
[2023-03-09] MEDS ORDERED: Multivitamin Tab PO SCH (09:00)
[2023-03-09] MEDS ORDERED: Potassium Chloride 20 MEQ Tab.ER PO SCH (09:00)
[2023-03-09] MEDS ORDERED: Thiamine 100 MG Tab PO SCH (09:00)
[2023-03-09] MEDS ORDERED: Magnesium Oxide 400 MG Tab PO SCH (09:00)
[2023-03-09] MEDS ORDERED: Vitamin B Complex With Vitamin C Cap PO SCH (09:00)
[2023-03-09] MEDS ORDERED: Pantoprazole 40 MG Tab.CR PO SCH (09:00)
[2023-03-09] MEDS: Rifaximin 550 MG Tab PO SCH (10:06)
[2023-03-09] MEDS: Lactulose Soln 10 GM/15 ML 30 ML UD Cup PO SCH ×2 (10:08→15:46)
[2023-03-09] MEDS: Gabapentin 100 MG Cap PO SCH ×2 (10:08→15:45)
== END 2023-03-09 19:00 | disposition other institution (70) ==
LOC: JD.ED 12:20
DX: K72.10 Chronic hepatic failure without coma (principal); N17.9 Acute kidney failure, unspecified; I11.0 Hypertensive heart disease with heart failure; I50.9 Heart failure, unspecified; E78.00 Pure hypercholesterolemia, unspecified; E11.9 Type 2 diabetes mellitus without complications; E66.9 Obesity, unspecified; Z68.27 Body mass index [BMI] 27.0-27.9, adult; Z88.5 Allergy status to narcotic agent; Z86.16 Personal history of COVID-19; Z88.8 Allergy status to other drugs, medicaments and biological substances; Z79.4 Long term (current) use of insulin; Z79.899 Other long term (current) drug therapy
CPT/HCPCS: 36415; 76700; 80048; 80053; 82140; 82947; 83735; 85025; 85610; 96365; 96366; 99285; A9270; J1815; J3490; J7030; P9047

== ENCOUNTER 2023-08-11 10:40 | Emergency (ER) | payer MEDICAID ==
[2023-08-11 12:14] LABS: C-REACTIVE PROTEIN 11.25 mg/dL (<0.30); URIC ACID 7.2 mg/dL (3.5-7.2)
[2023-08-13 17:42] LABS: ANA BY ELISA, IGG W/RFX TO IFA Detected (None Detected)
[2023-08-15 15:46] LABS: ANA,HEP-2,IGG Detected (<1:80); CYTOPLASMIC PATTERN Speckled
[2023-08-16 04:46] LABS: DSDNA AB IGG ELISA 9 IU (0-24); SMITH/RNP (ENA) AB, IGG 8 Units (0-19)
== END 2023-08-11 12:59 | disposition home or self-care (01) ==
LOC: JD.ED 10:40
DX: M71.22 Synovial cyst of popliteal space [Baker], left knee (principal); M10.9 Gout, unspecified; I11.0 Hypertensive heart disease with heart failure; I50.9 Heart failure, unspecified; I48.91 Unspecified atrial fibrillation; I25.2 Old myocardial infarction; E11.9 Type 2 diabetes mellitus without complications; J44.9 Chronic obstructive pulmonary disease, unspecified; E78.00 Pure hypercholesterolemia, unspecified; Z88.8 Allergy status to other drugs, medicaments and biological substances; Z88.5 Allergy status to narcotic agent; Z79.4 Long term (current) use of insulin; Z79.899 Other long term (current) drug therapy; Z95.5 Presence of coronary angioplasty implant and graft; Z86.16 Personal history of COVID-19; Z79.01 Long term (current) use of anticoagulants
CPT/HCPCS: 36415; 73562-26-LT; 73562-LT; 84550; 85652; 86038; 86039; 86140; 93971-26-LT; 93971-LT; 99284

== ENCOUNTER 2023-09-25 13:09 | Emergency (ER) | payer BC, MEDICAID, OTHER ==
[2023-09-25 14:36] LABS: BASOPHILS PERCENT AUTO 0.4 % (0.0-1.0); EOSINOPHILS ABSOLUTE AUTO 0.2 K/mm3 (0.0-0.4); EOSINOPHILS PERCENT AUTO 2.8 % (0.0-6.0); HEMATOCRIT 33.9 % (42.0-52.0); HEMOGLOBIN 10.9 gm/dl (14.0-18.0); IMMATURE GRAN ABSOLUTE AUTO 0.02 K/mm3 (0.00-0.05); IMMATURE GRAN PERCENT AUTO 0.3 % (0.0-0.4); LYMPHOCYTES PERCENT AUTO 25.9 % (24.0-44.0); MEAN CORPUSCULAR HEMOGLOBIN 27.5 pg (28.0-32.0); MEAN CORPUSCULAR HGB CONC 32.2 g/dl (32.0-36.0); MEAN CORPUSCULAR VOLUME 85.6 fl (83.0-99.0); MEAN PLATELET VOLUME 10.4 fl (9.4-12.4); MONOCYTES ABSOLUTE AUTO 0.9 K/mm3 (0.0-0.8); MONOCYTES PERCENT AUTO 11.1 % (0.0-8.0); NEUTROPHILS ABSOLUTE AUTO 4.7 K/mm3 (1.8-7.7); NEUTROPHILS PERCENT AUTO 59.5 % (41.0-71.0); PLATELET COUNT,PLT 252 K/mm3 (150-400); RED BLOOD CELL COUNT 3.96 M/mm3 (4.52-5.90); WHITE BLOOD CELL COUNT,WBC 7.85 K/mm3 (3.9-11.3)
[2023-09-25 15:17] LABS: A/G RATIO 0.8 (1-2); ALBUMIN 3.1 g/dl (3.4-5.0); ANION GAP 16.8 (5-15); BILIRUBIN TOTAL 0.4 mg/dL (0.2-1.0); BUN/CREATININE RATIO 16.7 (14-18); CREATININE 1.8 mg/dL (0.7-1.3); EST CRCL DRUG DOSING (CG) 51.26 mL/min; POTASSIUM,K 5.8 mEq/L (3.5-5.1); PROTEIN TOTAL,TP 7.2 g/dl (6.4-8.2)
== END 2023-09-25 17:31 | disposition home or self-care (01) ==
LOC: JD.ED 13:09
DX: R22.43 Localized swelling, mass and lump, lower limb, bilateral (principal); I11.0 Hypertensive heart disease with heart failure; I50.9 Heart failure, unspecified; I25.2 Old myocardial infarction; I48.91 Unspecified atrial fibrillation; J44.9 Chronic obstructive pulmonary disease, unspecified; E78.00 Pure hypercholesterolemia, unspecified; E66.9 Obesity, unspecified; E11.9 Type 2 diabetes mellitus without complications; Z86.16 Personal history of COVID-19; Z79.01 Long term (current) use of anticoagulants; Z79.899 Other long term (current) drug therapy; Z79.82 Long term (current) use of aspirin; Z79.52 Long term (current) use of systemic steroids; Z88.5 Allergy status to narcotic agent; Z88.8 Allergy status to other drugs, medicaments and biological substances; Z68.30 Body mass index [BMI] 30.0-30.9, adult; Z95.5 Presence of coronary angioplasty implant and graft
CPT/HCPCS: 36415; 80053; 85025; 85379; 93970; 93970-26; 99284